=== PATIENT | female | born 1950 | race Caucasian/White ===

== ENCOUNTER 2016-11-25 14:15 | Inpatient (IN) | payer OTHER, MEDICARE ==
[2016-11-25] VITALS (9 sets, daily range): BP systolic 104–147; BP diastolic 45–81; PULSE 65–91; RESP 16–30; O2SAT 85–95
[~2016-11-25] VITALS: Ht 167.6 cm; Wt 110.5 kg
[~2016-11-25 14:15] MED LIST: ASPI-351 PO; ATEN25TA7 PO; CEPH500C PO; CITA20TA PO; DILT60TA PO; LISI10TA PO; MULT-64 PO; OMEP20TA86 PO; PHEN200T16 PO; VIC5 PO; ZOC20 PO
--- NOTE | 2016-11-25 14:19 | ED.REPORT ---
HPI-Dyspnea / Wheezing Date of Service Nov 25, 2016 ED Provider: Jevon Guillen DO A 66 year old female with a history of pneumonia, aortic aneurism, and hypertension is brought to the ED via EMS, accompanied by her , due to shortness of breath. The pt has been experiencing a cough recently, which has worsened significantly. It is now productive with green and yellow sputum. This is accompanied by wheezing, nausea, vomiting, rhinorrhea, and nasal congestion. The pt saw her PCP four days ago, at which point her lungs were clear. She was diagnosed with sinusitis and prescribed Augmentin. She last took a dose this morning. The pt denies chest pain, lower extremity edema, abdominal pain, and bloody sputum. as well as any history of asthma or breathing treatments. states that he was recently dx with bronchitis. Nursing Notes Stated Complaint: SOB Chief Complaint: Respiratory Distress Nursing Notes Reviewed: Yes Allergies: Coded Allergies: Shellfish (Verified Allergy, Severe, 12/13/10) iodine (Verified Allergy, Severe, 12/13/10) hydromorphone (Verified Allergy, Intermediate, rash, 11/25/16) Scheduled Aspirin-Expunged Drug, Do Not Renew! (Aspirin-Expunged Drug, Do Not Renew!) 325 Mg Tablet 325 MG PO DAILY Atenolol-Expunged Drug, Do Not Renew! (Atenolol-Expunged Drug, Do Not Renew!) 25 Mg Tablet 50 MG PO BID HOLD FOR HEARTRATE LESS THAN 60 Esomeprazole Magnesium (Nexium) 20 Mg Capsule.dr 20 MG PO BID Multivitamins-Expunged Drug, Do Not Renew! (Multivitamins-Expunged Drug, Do Not Renew!) 1 Each Tab.chew 1 EACH PO DAILY Scheduled PRN Hydrocod/APAP-Expunged, Do Not Renew! (Vicodin-Expunged Drug, Do Not Renew) 1 Tab Tab 1-2 TAB PO QID PRN PRN General Time Seen by MD: 14:18 Chief Complaint Shortness of breath Hx Obtained From: Patient, EMS Arrived By: Ambulance Sudden in Onset?: No Onset Occurred: More than a week ago... Symptom Duration: Since onset Recent Healthcare: No recent hospitalization, Recent doctor visit Similar Sx Previous: Yes Past Medical History Past Medical History pneumonia aortic aneurism hypertension irregular heartbeat diverticulitis arthritis back injury depression Past Surgical History unspecified Smoking History Unknown if Ever Smoker Social History Alcohol Use: "Social" Ambulatory Status Independent Review of Systems Ears / Nose / Throat: Reports: Nasal congestion Respiratory: Reports: Prod cough, green, Prod cough, yellow, Wheezing, Denies: Prod cough, bloody Cardiovascular: Denies: Chest pain, Edema Allergy / Immune: Reports: Rhinorrhea Complete sys rev & neg: except as marked. GI: Reports: Nausea, Denies: Abdominal pain Physical Exam Initial Vital Signs Vital Signs (First) Date Time Temp Pulse Resp B/P Pulse Ox O2 Delivery O2 Flow Rate FiO2 11/25/16 14:18 37.1 79 26 122/65 93 Nasal Cannula 2 Initial VS: Reviewed General/Constitutional: Awake, Alert Distress / Hydration: Positive: Distress moderate Neck: Atraumatic, Supple, Full range of motion Respiratory / Chest: Atraumatic, Breath sounds = bilat, No respiratory distress Wheezing / Retractions: Positive: Wheezing mild (diffuse, scattered) expiratory wheezing hypoxic Cardiovascular: Heart rate NL, Regular rhythm, Heart sounds NL ENT: Atraumatic, Airway patent, Mucous membranes moist Abdomen: Atraumatic, Soft, Non-tender Back: Atraumatic, Full range of motion Lower Extremity / Pelvis / MS: Atraumatic, Full range of motion, No edema Skin: Atraumatic, Color NL, No rash, Warm, Dry Neurologic: Oriented X3, Speech NL, No motor deficits, No sensory deficits Upper Extremity / MS: Atraumatic, Full range of motion Psychiatric: Affect NL, Mood NL Interpretation & Diagnostics Lab Results Interpretation Result Diagram: 11/25/16 1502 11/25/16 1502 Test 11/25/16 15:02 White Blood Count 9.3th/mm3 (3.8-10.1) Red Blood Count 5.08mil/mm3 (3.90-5.20) Hemoglobin 14.9g/dL (12.0-15.6) Hematocrit 44.6% (35.0-46.0) Mean Corpuscular Volume 87.8fL (81-100) Mean Corpuscular Hemoglobin 29.3pg (27.0-35.0) Mean Corpuscular Hemoglobin Concent 33.4% (32.0-37.0) Red Cell Distribution Width 13.4% (12.3-15.4) Platelet Count 199bil/L (150-400) Neutrophils (%) (Auto) 75.7% (40-74) Lymphocytes (%) (Auto) 12.7% (14-46) Monocytes (%) (Auto) 10.5% (4-12) Eosinophils (%) (Auto) 0.4% (0-5) Basophils (%) (Auto) 0.4% (0-3) Sodium Level 133mEq/L (134-144) Potassium Level 4.4mEq/L (3.5-5.2) Chloride Level 95mEq/L (97-108) Carbon Dioxide Level 23mmol/L (18-29) Blood Urea Nitrogen 21mg/dL (8-27) Creatinine 1.10mg/dL (0.57-1.00) Estimat Glomerular Filtration Rate 71mL/min (>59) Glucose Level 121mg/dL (60-99) Lactic Acid Level 1.4mmol/L (0.4-2.0) Calcium Level 9.3mg/dL (8.5-10.1) Total Bilirubin 0.3mg/dL (0.0-1.2) Aspartate Amino Transf (AST/SGOT) 29U/L (0-50) Alanine Aminotransferase (ALT/SGPT) 23U/L (0-32) Alkaline Phosphatase 87U/L (25-165) Total Protein 7.8g/dL (6.4-8.4) Albumin 4.0g/dL (3.4-5.0) X-Ray Chest Interpretation Chest Xray Interpretation: IMPRESSION: No acute pulmonary process. Dictated by: Natasha Talley M.D. on 11/25/2016 at 15:18 Approved by: Natasha Talley M.D. on 11/25/2016 at 15:18 Re-Eval/Medical Decision Med Decision/Clinical Course Hypoxia with URI symptoms. Care transferred to Dr. Martin Alonzo Source of Hx: Old records Re-Evaluation/Progress : Time of Eval: 15:32 Re-Evaluation/Progress Note: Pt informed of transfer of care. Pt rechecked. Pt states that the breathing treatments have not improved her breathing. states that he was recently dx with bronchitis. Pt states that she wants to be discharged. Counseled Regarding: Diagnosis, Lab results Discharge & Departure Shift Change Sign-Out Patient Care Transferred: Yes Discussed Complaint(s): Yes Laboratory Evaluation: Ordered, not yet done Imaging Studies: Ordered, not yet done Impression: Primary Impression: Bronchitis Disposition: Home Discharge Condition All VS Reviewed: Yes Condition: Stable Patient Instructions: Acute Bronchitis (ED) Referrals: OTHER,PHYSICIAN (PCP) [facility] Care Transferred to: Dr. Bosch Care Transferred at: 15:00 Divinaibe Attestation Portions of this note were transcribed by Austen Dawson I, Dr. Guillen personally performed the history, physical exam and medical decision-making; I reviewed and confirmed the accuracy of the information in the transcribed note. Signed by: Sirisha Keys, 11/25/16 and 15:08. Portions of this note were transcribed by Jadyn Crawford I, Dr. Bosch personally performed the history, physical exam and medical decision-making; I reviewed and confirmed the accuracy of the information in the transcribed note. Signed by: Sirisha Keys, 11/25/16 and 15:39. copies to: [facility] Jevon Guillen DO Nov 25, 2016 14:18 AUSTEN DAWSON Nov 25, 2016 14:34 JADYN CRAWFORD Nov 25, 2016 15:35
[2016-11-25] MEDS ORDERED: Albuterol-Ipratropium 3 mL Inhalation Solution NEB ONE (14:30)
[2016-11-25] MEDS ORDERED: Albuterol 2.5 mg/3 mL Inhalation Solution NEB ONE (14:30)
[2016-11-25] MEDS ORDERED: MethylprednisoLONE Sodium Succinate 62.5 mg/mL 2 mL Inj IVPUSH ONE (14:30)
[2016-11-25] MEDS ORDERED: ESOM20CA28 PO (14:55)
[2016-11-25 15:09] LABS: BASOPHILS % (AUTO) 0.4 % (0-3); EOSINOPHILS % (AUTO) 0.4 % (0-5); MONOCYTES % (AUTO) 10.5 % (4-12); Mean Corpuscular Hemoglobin 29.3 pg (27.0-35.0); Mean Corpuscular Volume 87.8 fL (81-100); NEUTROPHILS % (AUTO) 75.7 % (40-74); Platelet Count 199 bil/L (150-400)
--- NOTE | 2016-11-25 15:24 | DRSVH ---
PROCEDURE: X-RAY CHEST, TWO VIEWS ([id number]) INDICATIONS: dyspnea/hypoxia TECHNIQUE: 2 views of the chest were acquired. COMPARISON: [facility], CR, XR CHEST 2VW, 07/05/2015, 10:20. FINDINGS: Surgical changes and devices: Sternal wires. Lungs and pleura: No pleural effusions or pneumothorax. Lungs are clear. Mediastinum: Mediastinal contours are normal. Heart size is normal. Bones and chest wall: No suspicious bony abnormalities. Soft tissues appear unremarkable. IMPRESSION: No acute pulmonary process. Dictated by: Natasha Talley M.D. on 11/25/2016 at 15:18 Approved by: Natasha Talley M.D. on 11/25/2016 at 15:18
[2016-11-25] MEDS ORDERED: Magnesium Sulf 2 Gm/50mL Water 2 GM in IV Premix 1 EACH IV ONE (15:40)
[2016-11-25] MEDS ORDERED: 0.9% Sodium Chloride 500 ML ONE (16:01)
[2016-11-25] MEDS ORDERED: Ondansetron 2 mg/mL 2 mL Inj IVPUSH ONE (18:35)
--- NOTE | 2016-11-25 19:16 | PCM.HPMED ---
Subjective Date of Service Nov 25, 2016 Primary Provider: Admitting Physician: Matt Almaraz MD Primary Care Physician: Other,Physician Attending Physician: Matt Almaraz MD Chief Complaint: Cough, short of breath HISTORY was OBTAINED FROM PATIENT / MEDITECH NOTES History of present illness 58-year-old female, brought in by due to shortness of breath and worsening cough, green productive associated bloody phlegm, wheezing, vomiting, nasal congestion, chest pressure, lower morrell edema, abdominal pain. PCP 4 days ago ordered Augmentin to treat sinusitis which is ongoing. initially had sinusitis. He also has bronchitis and is being treated w/ augmentin. no home inhaler use. prescribed CPAP but does not use. In the ER, 85% on room air, respiratory rate 30, ongoing wheezes Zofran saline magnesium azithromycin methylprednisolone albuterol DuoNeb 4 Review of Systems - none of the following - increased wt with poor appetite / lightheaded / dizziness / acid reflux / n/v/diarrhea / bleeding/bruising / change in voiding / yeast infections / rash ambulates FAMILY HX asthma childhood SOCIAL HX Occasional EtOH, never smoker medications metoprolol losartan crestor asa PMHx Paroxysmal A. 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 Hypothyroidism Headache Pneumonia Diverticulitis/GERD/PUD UTI Arthritis/back injury Depression Allergies Coded Allergies: Shellfish (Verified Allergy, Severe, 12/13/10) iodine (Verified Allergy, Severe, 12/13/10) hydromorphone (Verified Allergy, Intermediate, rash, 11/25/16) phenol (Verified Allergy, Unknown, 11/25/16) PMH Social History Hx Alcohol Use: Yes (occassionally) Hx Substance Use: No Hx Tobacco Use: No Smoking Status: Unknown if Ever Smoker Exam Vital Signs Vital Sign - Last Date Time Temp Pulse Resp B/P Pulse Ox O2 Delivery O2 Flow Rate FiO2 11/25/16 18:17 78 30 109/81 85 Room Air 11/25/16 17:25 5 11/25/16 14:18 37.1 Lab and Diagnostics Labs Exam on admission 5L >> 3L NC NAD A and O x 3 mood affect WNL NC/AT no icterus no injected eyes EOMI PERRL /no pharyngeal lesions/ no oral lesions / hearing intact Supple neck diminshed significantly bilateral, equal chest rise / no accessory muscle use / speaks in full sentences / no rrw RRR S1 S2 / no mrg / 2+ radial pulses Soft nt nd + BS no hepatosplenomegaly trace morrell bilateral edema no cyanosis no ecchymosis of lower extremities No rash / no jaundice MARRERO Trop neg BNP elevated Left shift Influenza negative Blood culture pending lactic acid neg LFT negative Imaging chest x-ray INDICATIONS: dyspnea/hypoxia TECHNIQUE: 2 views of the chest were acquired. COMPARISON: [facility], CR, XR CHEST 2VW, 07/05/2015, 10:20. FINDINGS: Surgical changes and devices: Sternal wires. Lungs and pleura: No pleural effusions or pneumothorax. Lungs are clear. Mediastinum: Mediastinal contours are normal. Heart size is normal. Bones and chest wall: No suspicious bony abnormalities. Soft tissues appear unremarkable. IMPRESSION: No acute pulmonary process. echo 2010- There is borderline concentric left ventricular hypertrophy. Left ventricular systolic function is normal, with an ejection fraction of 60- 65%. The aortic valve is sclerotic, sclerotic, without stenosis. Patient has had an ascending aortic aneurysm repair, no abnormalities are seen. There is a trace tricuspid regurgitation; right ventricular systolic pressure is normal. There is no prior echocardiogram noted for this patient. Result Diagram: 11/25/16 1502 11/25/16 1502 Assessment & Plan Active issues and reason for admission infectious bronchitis/sinusitis, failed outpatient augmentin associated w/ reactive airway/hypoxia --solumderol/duoneb/wean O2/rocephine azithro --pending PCR viral --ocean spray Associated elevated blood glucose and creatinine --A1c pending s/p IVF --ssI elevaetd BNP / hypoxia --evaluat CHF as contributing factor- pending Echo Chronic issues known prior to admission, present on admission Paroxysmal A. 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
[2016-11-25] MEDS ORDERED: Glucose 40% Oral Gel 15 Gm Tube PO PRN (19:20)
[2016-11-25] MEDS ORDERED: Albuterol 2.5 mg/3 mL Inhalation Solution NEB PRN (19:20)
[2016-11-25] MEDS ORDERED: ROSU10TA24 PO (20:22)
[2016-11-25] MEDS ORDERED: METO-272 PO (20:22)
[2016-11-25] MEDS ORDERED: LOSA50TA37 PO (20:22)
--- NOTE | 2016-11-25 20:23 | NUR ---
Admit Note Pt. arrived on floor at 1999. Report received by Seheba Stevens RN. Pt. was on 5 liters of oxygen with a non rebreather mask. Pt's peripheral IV is intact and present. Pt. was oriented to room. [place] bed alarm in place. Will continue to monitor.
[2016-11-25] MEDS: Albuterol-Ipratropium 3 mL Inhalation Solution NEB SCH (20:30)
[2016-11-25 22:19] LABS: APPEARANCE,URINE CLEAR (CLEAR,HAZY); COLOR,URINE STRAW (YELLOW); OCCULT BLOOD,URINE TRACE (NEGATIVE); PH,URINE 5.5 (5.0-8.0); UROBILINOGEN,URINE NORMAL (NORMAL)
[2016-11-25] MEDS: Insulin LISPRO 300 Unit/3 mL Inj SUBQ SCH (22:34)
[2016-11-26] VITALS (10 sets, daily range): BP systolic 126–150; BP diastolic 61–78; PULSE 61–78; RESP 16–20; O2SAT 92–98
[2016-11-26] MEDS: MeTOProlol XL 50 mg ER24 Tablet PO SCH ×2 (00:20→21:25)
[2016-11-26] MEDS: MethylprednisoLONE Sodium Succinate 62.5 mg/mL 2 mL Inj IVPUSH SCH ×3 (00:25→17:24)
[2016-11-26] MEDS: Albuterol-Ipratropium 3 mL Inhalation Solution NEB SCH ×6 (00:32→22:23)
[2016-11-26] MEDS: Sodium Chloride NAS 45 mL Spray NASAL PRN (03:32)
--- NOTE | 2016-11-26 04:09 | NUR ---
Sinus Headache Headache ineffective with tylenol PO. paged. ordered a one time dose of ultram PO. Will continue to monitor.
[2016-11-26 05:33] LABS: Mean Corpuscular Hemoglobin 29.4 pg (27.0-35.0)
[2016-11-26 05:54] LABS: TROPONIN T 0.01 ug/L (0.0-0.011)
[2016-11-26] MEDS ORDERED: 0.9% Sodium Chloride 250 ML ONE (07:44)
[2016-11-26] MEDS: Insulin LISPRO 300 Unit/3 mL Inj SUBQ SCH ×4 (07:47→21:24)
[2016-11-26] MEDS: cefTRIAXone Inj 1,000 MG in Dextrose 5% Minibag Plus 50 ML IV SCH (07:51)
--- NOTE | 2016-11-26 12:29 | PCM.PNMED ---
Subjective Date of Service Nov 26, 2016 Subjective Patient was examined at bedside today. Patient denies any chest pain, nausea, vomiting, diarrhea. Patient reports shortness of breath and fatigue. Exam Vital Signs Vital Sign - Last Date Time Temp Pulse Resp B/P Pulse Ox O2 Delivery O2 Flow Rate FiO2 11/26/16 11:47 63 16 95 OxyMask 6.00 11/26/16 05:13 36.4 126/61 Intake and Output 11/25/16 11/25/16 11/26/16 Cumulative From/Thru 15:00 23:00 07:00 11/25/16 14:18 - 11/26/16 05:13 Intake Total 2400 ml 2400 ml Output Total 1250 ml 1250 ml Balance 1150 ml 1150 ml Intake Oral 2400 ml 2400 ml Output Urine Total 1250 ml 1250 ml # Voids 5 5 # Bowel Movements 0 0 Exam Physical Exam: GEN: Patient was awake, alert, responding appropriately to questions HEENT: PERRLA, EOMI, Neck soft supple, trachea midline, nomocephalic/atraumatic CV: +S1/S2, RRR, no murmurs auscultated Respiratory: Positive wheezing bilaterally no rales, rhonchi GI: +bowel sounds x4, soft, compressible, non TTP EXT: no c/c/e Neuro: CN II-XII grossly intact Psych: mood and affect were appropriate IVs and Medications Medications Reviewed: Medications were reviewed in detail Medications Current Medications Al Hydrox/Mg Hydrox/Simethicone 30 ml Q6 PRN PO; Start 11/25/16 at 19:10 Ondansetron HCl Dose range: 4 mg to 8 mg Q4H PRN IVPUSH; Start 11/25/16 at 19: 10 Acetaminophen 975 mg Q6H PRN PO Last administered on 11/26/16 07:49; Admin Dose 975 MG; Start 11/25/16 at 19:10 Methylprednisolone Sodium Succinate 125 mg Q8 IVPUSH Last administered on 07:50; Admin Dose 125 MG; Start 11/26/16 at 00:30 Albuterol/ Ipratropium 3 ml 3 ml Q4 NEB Last administered on 11/26/16 11:47; Admin Dose 3 ML; Start 11/25/16 at 20:30 Ceftriaxone Sodium/Dextrose/ Dextrose/Water 100 ml @ 200 mls/hr Q24 IV Last administered on 11/26/16 07:51; Admin Dose 200 MLS/HR; Start 11/26/16 at 08:30 Enoxaparin Sodium 40 mg Q24 SUBQ Last administered on 11/26/16 07:50; Admin Dose 40 MG; Start 11/26/16 at 08:30 Albuterol 2.5 mg Q2H PRN NEB; Start 11/25/16 at 19:20 Famotidine 20 mg Q12 PO Last administered on 11/25/16 22:19; Admin Dose 20 MG; Start 11/25/16 at 20:30; Stop 11/26/16 at 00:00; Status DC Insulin Human Lispro WMHS SUBQ Last administered on 11/25/16 22:34; Admin Dose 1 UNIT; Start 11/25/16 at 22:00 Losartan Potassium 50 mg DAILY PO Last administered on 11/26/16 07:49; Admin Dose 50 MG; Start 11/26/16 at 08:30 Metoprolol Succinate 50 mg HS PO Last administered on 11/26/16 00:20; Admin Dose 50 MG; Start 11/25/16 at 23:15 Rosuvastatin Calcium 10 mg HS PO Last administered on 11/26/16 00:20; Admin Dose 10 MG; Start 11/25/16 at 23:15 Sodium Chloride 2 spray Q4HWA PRN NASAL Last administered on 11/26/16 03:32; Admin Dose 2 SPRAY; Start 11/25/16 at 23:30 Famotidine 20 mg DAILY PO Last administered on 11/26/16 07:49; Admin Dose 20 MG ; Start 11/26/16 at 08:30 Lab and Diagnostics Result Diagram: 11/26/1619 11/26/16 0519 Microbiology Laboratory Tests Test 11/25/16 15:02 11/25/16 21:00 11/26/16 05:19 White Blood Count 9.3th/mm3 (3.8-10.1) 8.0th/mm3 (3.8-10.1) Red Blood Count 5.08mil/mm3 (3.90-5.20) 4.76mil/mm3 (3.90-5.20) Hemoglobin 14.9g/dL (12.0-15.6) 14.0g/dL (12.0-15.6) Hematocrit 44.6% (35.0-46.0) 41.4% (35.0-46.0) Mean Corpuscular Volume 87.8fL (81-100) 87.0fL (81-100) Mean Corpuscular Hemoglobin 29.3pg (27.0-35.0) 29.4pg (27.0-35.0) Mean Corpuscular Hemoglobin Concent 33.4% (32.0-37.0) 33.8% (32.0-37.0) Red Cell Distribution Width 13.4% (12.3-15.4) 13.0% (12.3-15.4) Platelet Count 199bil/L (150-400) 221bil/L (150-400) Neutrophils (%) (Auto) 75.7% (40-74) Lymphocytes (%) (Auto) 12.7% (14-46) Monocytes (%) (Auto) 10.5% (4-12) Eosinophils (%) (Auto) 0.4% (0-5) Basophils (%) (Auto) 0.4% (0-3) Sodium Level 133mEq/L (134-144) 139mEq/L (134-144) Potassium Level 4.4mEq/L (3.5-5.2) 5.0mEq/L (3.5-5.2) Chloride Level 95mEq/L (97-108) 97mEq/L (97-108) Carbon Dioxide Level 23mmol/L (18-29) 25mmol/L (18-29) Blood Urea Nitrogen 21mg/dL (8-27) 22mg/dL (8-27) Creatinine 1.10mg/dL (0.57-1.00) 0.71mg/dL (0.57-1.00) Estimat Glomerular Filtration Rate 71mL/min (>59) 117mL/min (>59) Glucose Level 121mg/dL (60-99) 164mg/dL (60-99) Lactic Acid Level 1.4mmol/L (0.4-2.0) Calcium Level 9.3mg/dL (8.5-10.1) 9.3mg/dL (8.5-10.1) Total Bilirubin 0.3mg/dL (0.0-1.2) 0.2mg/dL (0.0-1.2) Aspartate Amino Transf (AST/SGOT) 29U/L (0-50) 24U/L (0-50) Alanine Aminotransferase (ALT/SGPT) 23U/L (0-32) 21U/L (0-32) Alkaline Phosphatase 87U/L (25-165) 86U/L (25-165) Troponin T < 0.010ug/L (0.0-0.011) 0.010ug/L (0.0-0.011) Pro-B-Type Natriuretic Peptide 393.2pg/mL (0-301) 142.0pg/mL (0-301) Total Protein 7.8g/dL (6.4-8.4) 7.2g/dL (6.4-8.4) Albumin 4.0g/dL (3.4-5.0) 4.1g/dL (3.4-5.0) Procalcitonin 0.06ng/mL (See Comment) < 0.05ng/mL (See Comment) Urine Color Straw (YELLOW) Urine Appearance Clear (CLEAR,HAZY) Urine pH 5.5 (5.0-8.0) Urine Specific [place] 1.010 (1.003-1.035) Urine Protein Negativemg/dL (NEG,TRACE) Urine Glucose (UA) Negativemg/dL (NEGATIVE) Urine Ketones Negativemg/dL (NEGATIVE) Urine Occult Blood Trace (NEGATIVE) Urine Nitrite Negative (NEGATIVE) Urine Bilirubin Negative (NEGATIVE) Urine Urobilinogen Normalmg/dL (NORMAL) Urine Leukocyte Esterase Negative (NEGATIVE) Urine RBC 0-2/hpf (0-2) Urine WBC 0-5/hpf (0-5) Urine Epithelial Cells Few/hpf (NONE-MOD) Urine Crystals None seen (NONE SEEN) Urine Bacteria None/hpf (NONE-FEW) Urine Hyaline Casts Occasional/lpf (NONE) Urine Granular Casts None seen (NONE SEEN) Urine Waxy Casts None seen (NONE SEEN) Urine Red Blood Cell Casts None seen (NONE SEEN) Urine White Blood Cell Casts None seen (NONE SEEN) Urine Mucus Present (None Seen) Urine Trichomonas None seen (NONE SEEN) Urine Yeast None (NONE SEEN) Urine Culture Reflexed Not indicated Microbiology 11/25/16 Blood Culture, Received Pending 11/25/16 MRSA Screen, Received Pending Microbiology ADENOVIRUS RESPIRATORY PCR Final 11/26/16-1042 Not Detected CORONOVIRUS 229E Final 11/26/16-1042 Not Detected CORONOVIRUS HKU1 Final 11/26/16 Not Detected CORONOVIRUS NL63 Final 11/26/16 Not Detected CORONOVIRUS OC43 Final 11/26/16 Not Detected INFLUENZA A PCR Final 11/26/16 Not Detected INFLUENZA B PCR Final 11/26/16 Not Detected METAPNEUMOVIRUS PCR Final 11/26/16 Not Detected RHINOVIRUS OR ENTEROVIRUS PCR Final 11/26/16 Not Detected PARAINFLUENZA 1 PCR Final 11/26/16 Not Detected PARAINFLUENZA 2 PCR Final 11/26/16 Not Detected PARAINFLUENZA 3 PCR Final 11/26/16 Not Detected PARAINFLUENZA 4 PCR Final 11/26/16 Not Detected Assessment & Plan 66-year-old female presents to the emergency room for shortness of breath and failed outpatient therapy for bronchitis. Infectious bronchitis/sinusitis, failed outpatient augmentin associated w/ reactive airway/hypoxia -- Continue duoneb/wean O2 -- Decrease Solu-Medrol to 60 every 8. -- Continue azithromycin and rocephine -- Patient positive for RSV, patient placed on droplet cautions -- Continue ocean spray -- Blood cultures pending -- Influenza screen negative -- Sputum culture shows normal sean -- Motrin for pain Associated elevated blood glucose --A1c pending -- Continue insulin sliding scale Elevated creatinine-resolved -- Creatinine 1.10 yesterday today 0.71 -- Patient responded well to IV fluids -- We will continue to monitor Elevaetd BNP / hypoxia -- Repeat BNP within normal limits 142 -- We will follow up on echo Hypertension -- Blood pressure stable 126/61 -- Continue losartan 50 mg daily -- Continue metoprolol 50 mg daily at bedtime Hyperlipidemia -- Continue Crestor 10 mg daily at bedtime DVT prophylaxis: Lovenox 40 mg subcutaneous daily, SCDs, ambulation Chronic issues known prior to admission, present on admission Paroxysmal A. 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 We will continue with medical management/supportive care and follow-up with blood cultures. GI Prophylaxis: H2 ashely VTE Mechanical Devices: Intermittant Pneumatic CD Resuscitation Status: CPR: Attempt Resuscitation Tiffanie Barney DO Nov 26, 2016 12:29
--- NOTE | 2016-11-26 14:15 | DRSVH ---
[facility] [address] [place] [address] Echocardiogram Report Name: FABRICIO BECK Date : 11/26/2016 Height: 66 in Hospital Exam Location: [facility] Weight: 240 lb Gender: Female BSA: 2.2 m2 : 1950 Age: 66 yrs BP: 126/61 mmHg Reason For Study: ELEVATED BNP, HYPOXIA Ordering Physician: Performed By: Natalio Padron Interpretation Summary The left ventricular cavity is small. There is mild-moderate concentric left ventricular hypertrophy. The ejection fraction is estimated to be 75-80%. There are no focal wall motion abnormalities. The right ventricle is normal in size and function. The right ventricular systolic pressure is estimated at 34 mmHg assuming a right atrial pressure of 3 mm Hg. The IVC is of normal diameter and collapses greater than 50% with a sniff. This suggests a low right atrial pressure of 3 mm Hg. There is no significant valvular heart disease. No other echocardiographic abnormalities seen. Compared to the prior echo report on 12/13/2010, there is no significant change. Procedure: A two-dimensional transthoracic echocardiogram with color flow and Doppler was performed. The study quality was technically adequate. Comparison is made with the echocardiogram of 12/13/10. The patient was in normal sinus rhythm during the exam. Left Ventricle: The left ventricular cavity is small. There is mild- moderate concentric left ventricular hypertrophy. The ejection fraction is estimated to be 75-80%. There are no focal wall motion abnormalities. Right Ventricle: The right ventricle is normal in size and function. Atria: Both atria are normal in size. The interatrial septum is intact with no evidence for an atrial septal defect. Mitral Valve: There is mild to moderate mitral annular calcification. There is no mitral regurgitation noted. Aortic Valve: The aortic valve is trileaflet. The aortic valve is mildly calcified. The aortic valve opens well. There is mild aortic valve sclerosis. There is trace aortic regurgitation. Tricuspid Valve: The tricuspid valve is normal in structure and function. There is mild to moderate tricuspid regurgitation. The right ventricular systolic pressure is estimated at 34 mmHg assuming a right atrial pressure of 3 mm Hg. Pulmonic Valve: The pulmonic valve is not well visualized. Great Vessels: The aortic root is normal size. Patient has had an ascending aortic aneurysm repair. The dimensions of the ascending aorta are normal. The pulmonary artery is normal size. The IVC is of normal diameter and collapses greater than 50% with a sniff. This suggests a low right atrial pressure of 3 mm Hg. Pericardium/ Pleura There is no pericardial effusion. There is no pleural effusion. MMode/2D Measurements & Calculations LVIDd: 3.9 cm LA dimension: 3.7 cm RA long axis Ao root diam LVIDs: 1.5 cm FS: 60.6 % LA A2 area: 21.7 cm RA area Aortic Jxn EPSS: 0.23 cm LA A4 area: 19.6 cm IVSd: 1.3 cm LA length (vol): 5.6 cm : 16.4 cm asc Aorta LVPWd: 1.1 cm LA vol: 63.9 ml RA vol: 43.3 mlDiam: 3.5 cm RA LA vol index: 29.6 ml/m : 20.0 mm2 IVC diam: 1.7 cm LV arreaga. diameter/BSA LV sys. diameter/BSA (cm/m^2): 1.8 (cm/m^2): 0.71 Doppler Measurements & Calculations Ao V2 max MV E max lopez MV E/A: 1.2 TR max lopez : 185.7 cm/sec : 130.3 cm/sec Med Peak E' Lopez : 280.3 cm/sec Ao max PG MV A max lopez TR max P.4 mmHg : 13.8 mmHg : 109.2 cm/sec E/E' med: 22.5 PA V2 max: 143.0 cm/sec Ao mean PG Pulm A Revs Dur PA mean P.3 mmHg : 8.3 mmHg PA Accel Time: 0.08 sec MV A dur: 0.12 sec MV dec time Ao V2 mean PA V2 mean Pulm A Revs Dur - MV A : 0.12 sec : 139.4 cm/sec : 99.0 cm/sec Dur: -0.02 msec Ao V2 VTI: 39.2 cmPA pr(Accel) : 39.1 mmHg Reading Physician:02:14 PM
--- NOTE | 2016-11-26 16:13 | NUR ---
Cough Pt inquiring about how much longer she'll be in the hospital. Discussed w/ her oxygen sats and that we need to ween her off of o2 Pt states she is feeling a bit better, I told her that she looks tired Pt states she really hasn't slept since Sunday night, requests something for cough/sleep Spoke to Dr. Satya Willams ordered also reduced pt down to 5L via oxymask per verbal order. Keep pt above 92% Bed down and in locked position, call light w/in reach
[2016-11-26] MEDS: Ondansetron 2 mg/mL 2 mL Inj IVPUSH PRN (17:12)
[2016-11-27] VITALS (9 sets, daily range): BP systolic 151–168; BP diastolic 70–82; PULSE 68–95; RESP 16–20; O2SAT 90–96
[2016-11-27] MEDS: Sodium Chloride NAS 45 mL Spray NASAL PRN ×2 (00:01→20:23)
[2016-11-27] MEDS: MethylprednisoLONE Sodium Succinate 62.5 mg/mL 2 mL Inj IVPUSH SCH ×3 (01:11→16:53)
[2016-11-27] MEDS: Albuterol-Ipratropium 3 mL Inhalation Solution NEB SCH ×6 (01:39→20:53)
--- NOTE | 2016-11-27 05:11 | NUR ---
Cough / O2 needs Persistent cough with sputum, pt reports that neb treatments help. Sat>92% on 3L via oxymask. Able to ambulate safely to BR with O2. Hourly rounding ongoing.
[2016-11-27] MEDS: cefTRIAXone Inj 1,000 MG in Dextrose 5% Minibag Plus 50 ML IV SCH (08:56)
[2016-11-27] MEDS: Insulin LISPRO 300 Unit/3 mL Inj SUBQ SCH ×4 (09:23→20:25)
--- NOTE | 2016-11-27 16:36 | PCM.PNMED ---
Subjective Date of Service Nov 27, 2016 Subjective Patient was examined at bedside today. Patient denies any chest pain, shortness of breath, nausea, vomiting, diarrhea. Exam Vital Signs Vital Sign - Last Date Time Temp Pulse Resp B/P Pulse Ox O2 Delivery O2 Flow Rate FiO2 11/27/16 16:17 95 18 93 OxyMask 1.50 11/27/16 13:51 36.4 168/70 Intake and Output 11/26/16 11/26/16 11/27/16 Cumulative From/Thru 15:00 23:00 07:00 11/25/16 14:18 - 11/27/16 05:44 Intake Total 1246 ml 1250 ml 4896 ml Output Total 1400 ml 2550 ml 5200 ml Balance -154 ml -1300 ml -304 ml Intake Oral 1246 ml 1250 ml 4896 ml Output Urine Total 1400 ml 2350 ml 5000 ml Emesis 200 ml 200 ml # Voids 5 5 15 # Bowel Movements 0 0 Exam Physical Exam: GEN: Patient was awake, alert, responding appropriately to questions HEENT: PERRLA, EOMI, Neck soft supple, trachea midline, nomocephalic/atraumatic CV: +S1/S2, RRR, no murmurs auscultated Respiratory: Positive wheezes, no rales or rhonchi GI: +bowel sounds x4, soft, compressible, non TTP EXT: no c/c/e Neuro: CN II-XII grossly intact Psych: mood and affect were appropriate IVs and Medications Medications Reviewed: Medications were reviewed in detail Medications Current Medications Al Hydrox/Mg Hydrox/Simethicone 30 ml Q6 PRN PO; Start 11/25/16 at 19:10 Ondansetron HCl Dose range: 4 mg to 8 mg Q4H PRN IVPUSH Last administered on 17:12; Admin Dose 4 MG; Start 11/25/16 at 19:10 Acetaminophen 975 mg Q6H PRN PO Last administered on 11/27/16 05:31; Admin Dose 975 MG; Start 11/25/16 at 19:10 Methylprednisolone Sodium Succinate 125 mg Q8 IVPUSH Last administered on 07:50; Admin Dose 125 MG; Start 11/26/16 at 00:30; Stop 11/26/16 at 12:21; Status DC Albuterol/ Ipratropium 3 ml 3 ml Q4 NEB Last administered on 11/27/16 16:16; Admin Dose 3 ML; Start 11/25/16 at 20:30 Ceftriaxone Sodium/Dextrose/ Dextrose/Water 100 ml @ 200 mls/hr Q24 IV Last administered on 11/27/16 08:56; Admin Dose 200 MLS/HR; Start 11/26/16 at 08:30 Enoxaparin Sodium 40 mg Q24 SUBQ Last administered on 11/27/16 09:13; Admin Dose 40 MG; Start 11/26/16 at 08:30 Albuterol 2.5 mg Q2H PRN NEB; Start 11/25/16 at 19:20 Famotidine 20 mg Q12 PO Last administered on 11/25/16 22:19; Admin Dose 20 MG; Start 11/25/16 at 20:30; Stop 11/26/16 at 00:00; Status DC Insulin Human Lispro WMHS SUBQ Last administered on 11/27/16 09:23; Admin Dose 3 UNIT; Start 11/25/16 at 22:00 Losartan Potassium 50 mg DAILY PO Last administered on 11/27/16 09:12; Admin Dose 50 MG; Start 11/26/16 at 08:30 Metoprolol Succinate 50 mg HS PO Last administered on 11/26/16 21:25; Admin Dose 50 MG; Start 11/25/16 at 23:15 Rosuvastatin Calcium 10 mg HS PO Last administered on 11/26/16 21:25; Admin Dose 10 MG; Start 11/25/16 at 23:15 Sodium Chloride 2 spray Q4HWA PRN NASAL Last administered on 11/27/16 00:01; Admin Dose 2 SPRAY; Start 11/25/16 at 23:30 Famotidine 20 mg DAILY PO Last administered on 11/27/16 09:12; Admin Dose 20 MG ; Start 11/26/16 at 08:30 Ibuprofen 600 mg QID PRN PO Last administered on 11/27/16 09:59; Admin Dose 600 MG; Start 11/26/16 at 12:10 Methylprednisolone Sodium Succinate 60 mg Q8 IVPUSH Last administered on 08:56; Admin Dose 60 MG; Start 11/26/16 at 16:30 Benzonatate 100 mg TID PRN PO Last administered on 11/26/16t 21:25; Admin Dose 100 MG; Start 11/26/16 at 16:05 Lab and Diagnostics Result Diagram: 11/26/16 0519 11/26/16 0519 Microbiology Laboratory Tests Test 11/25/16 15:02 11/25/16 21:00 11/26/16 05:19 White Blood Count 9.3th/mm3 (3.8-10.1) 8.0th/mm3 (3.8-10.1) Red Blood Count 5.08mil/mm3 (3.90-5.20) 4.76mil/mm3 (3.90-5.20) Hemoglobin 14.9g/dL (12.0-15.6) 14.0g/dL (12.0-15.6) Hematocrit 44.6% (35.0-46.0) 41.4% (35.0-46.0) Mean Corpuscular Volume 87.8fL (81-100) 87.0fL (81-100) Mean Corpuscular Hemoglobin 29.3pg (27.0-35.0) 29.4pg (27.0-35.0) Mean Corpuscular Hemoglobin Concent 33.4% (32.0-37.0) 33.8% (32.0-37.0) Red Cell Distribution Width 13.4% (12.3-15.4) 13.0% (12.3-15.4) Platelet Count 199bil/L (150-400) 221bil/L (150-400) Neutrophils (%) (Auto) 75.7% (40-74) Lymphocytes (%) (Auto) 12.7% (14-46) Monocytes (%) (Auto) 10.5% (4-12) Eosinophils (%) (Auto) 0.4% (0-5) Basophils (%) (Auto) 0.4% (0-3) Sodium Level 133mEq/L (134-144) 139mEq/L (134-144) Potassium Level 4.4mEq/L (3.5-5.2) 5.0mEq/L (3.5-5.2) Chloride Level 95mEq/L (97-108) 97mEq/L (97-108) Carbon Dioxide Level 23mmol/L (18-29) 25mmol/L (18-29) Blood Urea Nitrogen 21mg/dL (8-27) 22mg/dL (8-27) Creatinine 1.10mg/dL (0.57-1.00) 0.71mg/dL (0.57-1.00) Estimat Glomerular Filtration Rate 71mL/min (>59) 117mL/min (>59) Glucose Level 121mg/dL (60-99) 164mg/dL (60-99) Lactic Acid Level 1.4mmol/L (0.4-2.0) Calcium Level 9.3mg/dL (8.5-10.1) 9.3mg/dL (8.5-10.1) Total Bilirubin 0.3mg/dL (0.0-1.2) 0.2mg/dL (0.0-1.2) Aspartate Amino Transf (AST/SGOT) 29U/L (0-50) 24U/L (0-50) Alanine Aminotransferase (ALT/SGPT) 23U/L (0-32) 21U/L (0-32) Alkaline Phosphatase 87U/L (25-165) 86U/L (25-165) Troponin T < 0.010ug/L (0.0-0.011) 0.010ug/L (0.0-0.011) Pro-B-Type Natriuretic Peptide 393.2pg/mL (0-301) 142.0pg/mL (0-301) Total Protein 7.8g/dL (6.4-8.4) 7.2g/dL (6.4-8.4) Albumin 4.0g/dL (3.4-5.0) 4.1g/dL (3.4-5.0) Procalcitonin 0.06ng/mL (See Comment) < 0.05ng/mL (See Comment) Urine Color Straw (YELLOW) Urine Appearance Clear (CLEAR,HAZY) Urine pH 5.5 (5.0-8.0) Urine Specific Keiser 1.010 (1.003-1.035) Urine Protein Negativemg/dL (NEG,TRACE) Urine Glucose (UA) Negativemg/dL (NEGATIVE) Urine Ketones Negativemg/dL (NEGATIVE) Urine Occult Blood Trace (NEGATIVE) Urine Nitrite Negative (NEGATIVE) Urine Bilirubin Negative (NEGATIVE) Urine Urobilinogen Normalmg/dL (NORMAL) Urine Leukocyte Esterase Negative (NEGATIVE) Urine RBC 0-2/hpf (0-2) Urine WBC 0-5/hpf (0-5) Urine Epithelial Cells Few/hpf (NONE-MOD) Urine Crystals None seen (NONE SEEN) Urine Bacteria None/hpf (NONE-FEW) Urine Hyaline Casts Occasional/lpf (NONE) Urine Granular Casts None seen (NONE SEEN) Urine Waxy Casts None seen (NONE SEEN) Urine Red Blood Cell Casts None seen (NONE SEEN) Urine White Blood Cell Casts None seen (NONE SEEN) Urine Mucus Present (None Seen) Urine Trichomonas None seen (NONE SEEN) Urine Yeast None (NONE SEEN) Urine Culture Reflexed Not indicated Microbiology 11/25/16 Blood Culture, Received Pending 11/25/16 MRSA Screen, Received Pending Microbiology ADENOVIRUS RESPIRATORY PCR Final 11/26/16 Not Detected CORONOVIRUS 229E Final 11/26/16 Not Detected CORONOVIRUS HKU1 Final 11/26/16 Not Detected CORONOVIRUS NL63 Final 11/26/16 Not Detected CORONOVIRUS OC43 Final 11/26/16 Not Detected INFLUENZA A PCR Final 11/26/16 Not Detected INFLUENZA B PCR Final 11/26/16 Not Detected METAPNEUMOVIRUS PCR Final 11/26/16 Not Detected RHINOVIRUS OR ENTEROVIRUS PCR Final 11/26/16 Not Detected PARAINFLUENZA 1 PCR Final 11/26/16 Not Detected PARAINFLUENZA 2 PCR Final 11/26/16 Not Detected PARAINFLUENZA 3 PCR Final 11/26/16 Not Detected PARAINFLUENZA 4 PCR Final 11/26/16 Not Detected Cardiac Echo Impressions Echocardiogram Report Name: FABRICIO BECK [place] Date : 11/26/2016 Height: 66 in Hospital Exam Location: [facility] Weight: 240 lb Gender: Female BSA: 2.2 m2 : 1950 Age: 66 yrs BP: 126/61 mmHg Reason For Study: ELEVATED BNP, HYPOXIA Ordering Physician: Performed By: Natalio Padron Interpretation Summary The left ventricular cavity is small. There is mild-moderate concentric left ventricular hypertrophy. The ejection fraction is estimated to be 75-80%. There are no focal wall motion abnormalities. The right ventricle is normal in size and function. The right ventricular systolic pressure is estimated at 34 mmHg assuming a right atrial pressure of 3 mm Hg. The IVC is of normal diameter and collapses greater than 50% with a sniff. This suggests a low right atrial pressure of 3 mm Hg. There is no significant valvular heart disease. No other echocardiographic abnormalities seen. Compared to the prior echo report on 12/13/2010, there is no significant change. Procedure: A two-dimensional transthoracic echocardiogram with color flow and Doppler was performed. The study quality was technically adequate. Comparison is made with the echocardiogram of 12/13/10. The patient was in normal sinus rhythm during the exam. Left Ventricle: The left ventricular cavity is small. There is mild- moderate concentric left ventricular hypertrophy. The ejection fraction is estimated to be 75-80%. There are no focal wall motion abnormalities. Right Ventricle: The right ventricle is normal in size and function. Atria: Both atria are normal in size. The interatrial septum is intact with no evidence for an atrial septal defect. Mitral Valve: There is mild to moderate mitral annular calcification. There is no mitral regurgitation noted. Aortic Valve: The aortic valve is trileaflet. The aortic valve is mildly calcified. The aortic valve opens well. There is mild aortic valve sclerosis. There is trace aortic regurgitation. Tricuspid Valve: The tricuspid valve is normal in structure and function. There is mild to moderate tricuspid regurgitation. The right ventricular systolic pressure is estimated at 34 mmHg assuming a right atrial pressure of 3 mm Hg. Pulmonic Valve: The pulmonic valve is not well visualized. Great Vessels: The aortic root is normal size. Patient has had an ascending aortic aneurysm repair. The dimensions of the ascending aorta are normal. The pulmonary artery is normal size. The IVC is of normal diameter and collapses greater than 50% with a sniff. This suggests a low right atrial pressure of 3 mm Hg. Pericardium/ Pleura There is no pericardial effusion. There is no pleural effusion. MMode/2D Measurements & Calculations LVIDd: 3.9 cm LA dimension: 3.7 cm RA long axis Ao root diam LVIDs: 1.5 cm FS: 60.6 % LA A2 area: 21.7 cm RA area Aortic Jxn EPSS: 0.23 cm LA A4 area: 19.6 cm IVSd: 1.3 cm LA length (vol): 5.6 cm : 16.4 cm asc Aorta LVPWd: 1.1 cm LA vol: 63.9 ml RA vol: 43.3 mlDiam: 3.5 cm RA LA vol index: 29.6 ml/m : 20.0 mm2 IVC diam: 1.7 cm LV arreaga. diameter/BSA LV sys. diameter/BSA (cm/m^2): 1.8 (cm/m^2): 0.71 Doppler Measurements & Calculations Ao V2 max MV E max lopez MV E/A: 1.2 TR max lopez : 185.7 cm/sec : 130.3 cm/sec Med Peak E' Lopez : 280.3 cm/sec Ao max PG MV A max lopez TR max P.4 mmHg : 13.8 mmHg : 109.2 cm/sec E/E' med: 22.5 PA V2 max: 143.0 cm/sec Ao mean PG Pulm A Revs Dur PA mean P.3 mmHg : 8.3 mmHg PA Accel Time: 0.08 sec MV A dur: 0.12 sec MV dec time Ao V2 mean PA V2 mean Pulm A Revs Dur - MV A : 0.12 sec : 139.4 cm/sec : 99.0 cm/sec Dur: -0.02 msec Ao V2 VTI: 39.2 cmPA pr(Accel) : 39.1 mmHg Reading Physician:02:14 PM Assessment & Plan 66-year-old female presents to the emergency room for shortness of breath and failed outpatient therapy for bronchitis. Infectious bronchitis/sinusitis, failed outpatient augmentin associated w/ reactive airway/hypoxia -- Continue duoneb -- wean O2 -- Decrease Solu-Medrol to 60 PO QD -- Discontinue azithromycin and rocephine -- Patient positive for RSV, patient placed on droplet cautions -- Continue ocean spray -- Blood cultures pending negative -- Influenza screen negative -- Sputum culture shows normal sean -- Motrin for pain Associated elevated blood glucose --A1c pending -- Continue insulin sliding scale Elevated creatinine-resolved -- Creatinine 1.10 yesterday today 0.71 -- Patient responded well to IV fluids -- We will continue to monitor Elevaetd BNP / hypoxia -- Repeat BNP within normal limits 142 -- Echo shows no changes from previous echo Hypertension -- Blood pressure 168/70 -- Continue losartan 50 mg daily -- Continue metoprolol 50 mg daily at bedtime Hyperlipidemia -- Continue Crestor 10 mg daily at bedtime DVT prophylaxis: Lovenox 40 mg subcutaneous daily, SCDs, ambulation Chronic issues known prior to admission, present on admission Paroxysmal A. fib AAA repair in 1999/hypertension no dyslipidemia - statin per executive talent acquisition consultant Hypothyroidism Headache Pneumonia Diverticulitis/GERD/PUD UTI Arthritis/back injury Code full Disposition: Patient seems to have improved significantly and is recovering well. At this time the patient has not been able to tolerate the weaning of oxygen. Patient is currently down to 1 L of oxygen and satting well. We will discontinue patient's oxygen in order to send patient home. Patient will most likely be discharged home tomorrow pending oxygen weaned. GI Prophylaxis: H2 ashely VTE Mechanical Devices: Intermittant Pneumatic CD Resuscitation Status: CPR: Attempt Resuscitation Tiffanie Barney DO Nov 27, 2016 16:36
[2016-11-27] MEDS: Ondansetron 2 mg/mL 2 mL Inj IVPUSH PRN (16:53)
--- NOTE | 2016-11-27 19:39 | NUR ---
Cough/nausea/emesis Patient with nausea today and some emesis after a neb treatment given. Pt remains on 02-1-2 liters at this time. Patient desating to 85-88 percent on room air. Pt with wheezes noted and dry cough .
[2016-11-27] MEDS: MeTOProlol XL 50 mg ER24 Tablet PO SCH (20:23)
[2016-11-27] MEDS: diphenhydrAMINE 25 mg Capsule PO PRN (23:09)
[2016-11-28] VITALS (8 sets, daily range): BP systolic 138–145; BP diastolic 75–82; PULSE 71–142; RESP 18–20; O2SAT 88–97
[2016-11-28] MEDS: Sodium Chloride NAS 45 mL Spray NASAL PRN ×2 (00:08→06:36)
[2016-11-28] MEDS: Ondansetron 2 mg/mL 2 mL Inj IVPUSH PRN ×3 (00:08→13:19)
[2016-11-28] MEDS: Albuterol-Ipratropium 3 mL Inhalation Solution NEB SCH ×2 (00:30→06:14)
--- NOTE | 2016-11-28 05:11 | NUR ---
O2 needs Ambulated 3 full loops in hallway with 2L O2, sats in low 90s. Able to wean off of O2 while resting in bed late in night, sat 90-92%. Neb treatments continue to give pt headache and increase cough, otherwise she reports feeling better and having more energy. Hourly rounding ongoing.
[2016-11-28] MEDS: Insulin LISPRO 300 Unit/3 mL Inj SUBQ SCH ×4 (08:00→22:00)
[2016-11-28] MEDS: predniSONE 20 mg Tablet PO SCH (08:03)
[2016-11-28] MEDS: Albuterol 2.5 mg/3 mL Inhalation Solution NEB SCH ×2 (09:37→13:08)
--- NOTE | 2016-11-28 11:41 | NUR ---
Social Work Screen Note: EMR reviewed. Patient is a 66 year old female admitted on 11/25/16 for hypoxemia and bronchitis. [facility] [place]. [phone]. 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 Patient payer as BCBS and Medicare. Patient has no terminal superintendent disability nor VA benefits. Patient PCP as MD Pamela Bhat. Patient states pharmacy of choice as [facility]. Patient has no HHC, SNF, or DME history. Patient states having no AD and declined information. Patient states to provide transport home upon discharge. Patient denied any discharge needs at this time. SW to follow. PLAN: Home with via POV, pending clinical course. No anticipated discharge needs identified at this time. Solange BLUE
[2016-11-28] MEDS: diphenhydrAMINE 25 mg Capsule PO PRN ×2 (12:10→23:42)
[2016-11-28] MEDS ORDERED: Levalbuterol 1.25 mg/0.5mL Inhalation Solution NEB SCH (13:35)
[2016-11-28] MEDS ORDERED: MeTOProlol 1 mg/mL 5 mL Inj IVPUSH ONE (14:05)
--- NOTE | 2016-11-28 15:29 | PCM.PNMED ---
Subjective Date of Service Nov 28, 2016 Subjective Patient was seen and examined today. Patient was in no acute distress. Patient denied chest pain, abdominal pain. However the patient reported nausea and vomiting with the use of dual nebs and albuterol. Patient states that she does not feel short of breath and does not understand why her oxygen saturations are desatting into the 80s even when at rest occasionally.Staff also mention that the patient's oxygen saturations have been desatting while walking as well. Patient states that she feels improved. Exam Vital Signs Vital Sign - Last Date Time Temp Pulse Resp B/P Pulse Ox O2 Delivery O2 Flow Rate FiO2 11/28/16 13:08 77 20 90 Room Air 11/28/16 06:14 1.00 11/28/16 04:39 36.7 145/79 Intake and Output 11/27/16 11/27/16 11/28/16 Cumulative From/Thru 15:00 23:00 07:00 11/25/16 14:18 - 11/28/16 05:15 Intake Total 2231 ml 1250 ml 8377 ml Output Total 1400 ml 2250 ml 8850 ml Balance 831 ml -1000 ml -473 ml Intake Oral 2231 ml 1250 ml 8377 ml Output Urine Total 1400 ml 2250 ml 8650 ml Emesis 200 ml # Voids 5 20 # Bowel Movements 1 0 1 Exam Physical Exam: GEN: Patient was awake, alert, responding appropriately to questions HEENT: PERRLA, EOMI, Neck soft supple, trachea midline, nomocephalic/atraumatic CV: +S1/S2, RRR, no murmurs auscultated Respiratory: Mild wheezing significantly improved from yesterday, no rales or rhonchi GI: +bowel sounds x4, soft, compressible, non TTP EXT: no c/c/e Neuro: CN II-XII grossly intact Psych: mood and affect were appropriate IVs and Medications Medications Reviewed: Medications were reviewed in detail Medications Current Medications Methylprednisolone Sodium Succinate 60 mg Q8 IVPUSH Last administered on 16:53; Admin Dose 60 MG; Start 11/26/16 at 16:30; Stop 11/27/16 at 17:40; Status DC Benzonatate 100 mg TID PRN PO Last administered on 11/27/16 20:23; Admin Dose 100 MG; Start 11/26/16 at 16:05 Prednisone 60 mg DAILY PO Last administered on 11/28/16 08:03; Admin Dose 60 MG ; Start 11/28/16 at 08:30 Diphenhydramine HCl 25-50 MG Q6H PRN PO Last administered on 11/28/16 12:10; Admin Dose 50 MG; Start 11/27/16 at 22:20 Albuterol 2.5 mg Q4H NEB Last administered on 11/28/16 13:08; Admin Dose 2.5 MG ; Start 11/28/16 at 10:00; Stop 11/28/16 at 13:31; Status DC Levalbuterol 1.25 mg Q4H NEB; Start 11/28/16 at 13:35 Lab and Diagnostics Result Diagram: 11/26/16 0519 11/26/16 0519 Microbiology Laboratory Tests Test 11/25/16 15:02 11/25/16 21:00 11/26/16 05:19 White Blood Count 9.3th/mm3 (3.8-10.1) 8.0th/mm3 (3.8-10.1) Red Blood Count 5.08mil/mm3 (3.90-5.20) 4.76mil/mm3 (3.90-5.20) Hemoglobin 14.9g/dL (12.0-15.6) 14.0g/dL (12.0-15.6) Hematocrit 44.6% (35.0-46.0) 41.4% (35.0-46.0) Mean Corpuscular Volume 87.8fL (81-100) 87.0fL (81-100) Mean Corpuscular Hemoglobin 29.3pg (27.0-35.0) 29.4pg (27.0-35.0) Mean Corpuscular Hemoglobin Concent 33.4% (32.0-37.0) 33.8% (32.0-37.0) Red Cell Distribution Width 13.4% (12.3-15.4) 13.0% (12.3-15.4) Platelet Count 199bil/L (150-400) 221bil/L (150-400) Neutrophils (%) (Auto) 75.7% (40-74) Lymphocytes (%) (Auto) 12.7% (14-46) Monocytes (%) (Auto) 10.5% (4-12) Eosinophils (%) (Auto) 0.4% (0-5) Basophils (%) (Auto) 0.4% (0-3) Sodium Level 133mEq/L (134-144) 139mEq/L (134-144) Potassium Level 4.4mEq/L (3.5-5.2) 5.0mEq/L (3.5-5.2) Chloride Level 95mEq/L (97-108) 97mEq/L (97-108) Carbon Dioxide Level 23mmol/L (18-29) 25mmol/L (18-29) Blood Urea Nitrogen 21mg/dL (8-27) 22mg/dL (8-27) Creatinine 1.10mg/dL (0.57-1.00) 0.71mg/dL (0.57-1.00) Estimat Glomerular Filtration Rate 71mL/min (>59) 117mL/min (>59) Glucose Level 121mg/dL (60-99) 164mg/dL (60-99) Lactic Acid Level 1.4mmol/L (0.4-2.0) Calcium Level 9.3mg/dL (8.5-10.1) 9.3mg/dL (8.5-10.1) Total Bilirubin 0.3mg/dL (0.0-1.2) 0.2mg/dL (0.0-1.2) Aspartate Amino Transf (AST/SGOT) 29U/L (0-50) 24U/L (0-50) Alanine Aminotransferase (ALT/SGPT) 23U/L (0-32) 21U/L (0-32) Alkaline Phosphatase 87U/L (25-165) 86U/L (25-165) Troponin T < 0.010ug/L (0.0-0.011) 0.010ug/L (0.0-0.011) Pro-B-Type Natriuretic Peptide 393.2pg/mL (0-301) 142.0pg/mL (0-301) Total Protein 7.8g/dL (6.4-8.4) 7.2g/dL (6.4-8.4) Albumin 4.0g/dL (3.4-5.0) 4.1g/dL (3.4-5.0) Procalcitonin 0.06ng/mL (See Comment) < 0.05ng/mL (See Comment) Urine Color Straw (YELLOW) Urine Appearance Clear (CLEAR,HAZY) Urine pH 5.5 (5.0-8.0) Urine Specific [place] 1.010 (1.003-1.035) Urine Protein Negativemg/dL (NEG,TRACE) Urine Glucose (UA) Negativemg/dL (NEGATIVE) Urine Ketones Negativemg/dL (NEGATIVE) Urine Occult Blood Trace (NEGATIVE) Urine Nitrite Negative (NEGATIVE) Urine Bilirubin Negative (NEGATIVE) Urine Urobilinogen Normalmg/dL (NORMAL) Urine Leukocyte Esterase Negative (NEGATIVE) Urine RBC 0-2/hpf (0-2) Urine WBC 0-5/hpf (0-5) Urine Epithelial Cells Few/hpf (NONE-MOD) Urine Crystals None seen (NONE SEEN) Urine Bacteria None/hpf (NONE-FEW) Urine Hyaline Casts Occasional/lpf (NONE) Urine Granular Casts None seen (NONE SEEN) Urine Waxy Casts None seen (NONE SEEN) Urine Red Blood Cell Casts None seen (NONE SEEN) Urine White Blood Cell Casts None seen (NONE SEEN) Urine Mucus Present (None Seen) Urine Trichomonas None seen (NONE SEEN) Urine Yeast None (NONE SEEN) Urine Culture Reflexed Not indicated Microbiology 11/25/16 Blood Culture, Received Pending 11/25/16 MRSA Screen, Received Pending Microbiology ADENOVIRUS RESPIRATORY PCR Final 11/26/16 Not Detected CORONOVIRUS 229E Final 11/26/16 Not Detected CORONOVIRUS HKU1 Final 11/26/16 Not Detected CORONOVIRUS NL63 Final 11/26/16 Not Detected CORONOVIRUS OC43 Final 11/26/16 Not Detected INFLUENZA A PCR Final 11/26/16 Not Detected INFLUENZA B PCR Final 11/26/16 Not Detected METAPNEUMOVIRUS PCR Final 11/26/16 Not Detected RHINOVIRUS OR ENTEROVIRUS PCR Final 11/26/16 Not Detected PARAINFLUENZA 1 PCR Final 11/26/16 Not Detected PARAINFLUENZA 2 PCR Final 11/26/16 Not Detected PARAINFLUENZA 3 PCR Final 11/26/16 Not Detected PARAINFLUENZA 4 PCR Final 11/26/16 Not Detected Cardiac Echo Impressions Echocardiogram Report Name: FABRICIO BECK Date : 11/26/2016 Height: 66 in Hospital Exam Location: [facility] Weight: 240 lb Gender: Female BSA: 2.2 m2 : 1950 Age: 66 yrs BP: 126/61 mmHg Reason For Study: ELEVATED BNP, HYPOXIA Ordering Physician: Performed By: Natalio Padron Interpretation Summary The left ventricular cavity is small. There is mild-moderate concentric left ventricular hypertrophy. The ejection fraction is estimated to be 75-80%. There are no focal wall motion abnormalities. The right ventricle is normal in size and function. The right ventricular systolic pressure is estimated at 34 mmHg assuming a right atrial pressure of 3 mm Hg. The IVC is of normal diameter and collapses greater than 50% with a sniff. This suggests a low right atrial pressure of 3 mm Hg. There is no significant valvular heart disease. No other echocardiographic abnormalities seen. Compared to the prior echo report on 12/13/2010, there is no significant change. Procedure: A two-dimensional transthoracic echocardiogram with color flow and Doppler was performed. The study quality was technically adequate. Comparison is made with the echocardiogram of 12/13/10. The patient was in normal sinus rhythm during the exam. Left Ventricle: The left ventricular cavity is small. There is mild- moderate concentric left ventricular hypertrophy. The ejection fraction is estimated to be 75-80%. There are no focal wall motion abnormalities. Right Ventricle: The right ventricle is normal in size and function. Atria: Both atria are normal in size. The interatrial septum is intact with no evidence for an atrial septal defect. Mitral Valve: There is mild to moderate mitral annular calcification. There is no mitral regurgitation noted. Aortic Valve: The aortic valve is trileaflet. The aortic valve is mildly calcified. The aortic valve opens well. There is mild aortic valve sclerosis. There is trace aortic regurgitation. Tricuspid Valve: The tricuspid valve is normal in structure and function. There is mild to moderate tricuspid regurgitation. The right ventricular systolic pressure is estimated at 34 mmHg assuming a right atrial pressure of 3 mm Hg. Pulmonic Valve: The pulmonic valve is not well visualized. Great Vessels: The aortic root is normal size. Patient has had an ascending aortic aneurysm repair. The dimensions of the ascending aorta are normal. The pulmonary artery is normal size. The IVC is of normal diameter and collapses greater than 50% with a sniff. This suggests a low right atrial pressure of 3 mm Hg. Pericardium/ Pleura There is no pericardial effusion. There is no pleural effusion. MMode/2D Measurements & Calculations LVIDd: 3.9 cm LA dimension: 3.7 cm RA long axis Ao root diam LVIDs: 1.5 cm FS: 60.6 % LA A2 area: 21.7 cm RA area Aortic Jxn EPSS: 0.23 cm LA A4 area: 19.6 cm IVSd: 1.3 cm LA length (vol): 5.6 cm : 16.4 cm asc Aorta LVPWd: 1.1 cm LA vol: 63.9 ml RA vol: 43.3 mlDiam: 3.5 cm RA LA vol index: 29.6 ml/m : 20.0 mm2 IVC diam: 1.7 cm LV arreaga. diameter/BSA LV sys. diameter/BSA (cm/m^2): 1.8 (cm/m^2): 0.71 Doppler Measurements & Calculations Ao V2 max MV E max lopez MV E/A: 1.2 TR max lopez : 185.7 cm/sec : 130.3 cm/sec Med Peak E' Lopez : 280.3 cm/sec Ao max PG MV A max lopez TR max P.4 mmHg : 13.8 mmHg : 109.2 cm/sec E/E' med: 22.5 PA V2 max: 143.0 cm/sec Ao mean PG Pulm A Revs Dur PA mean P.3 mmHg : 8.3 mmHg PA Accel Time: 0.08 sec MV A dur: 0.12 sec MV dec time Ao V2 mean PA V2 mean Pulm A Revs Dur - MV A : 0.12 sec : 139.4 cm/sec : 99.0 cm/sec Dur: -0.02 msec Ao V2 VTI: 39.2 cmPA pr(Accel) : 39.1 mmHg Reading Physician:02:14 PM Assessment & Plan 66-year-old female presents to the emergency room for shortness of breath and failed outpatient therapy for bronchitis. Infectious bronchitis/sinusitis, failed outpatient augmentin associated w/ reactive airway/hypoxia -- Discontinue DuoNeb as patient seems to be having adverse reactions -- wean O2 -- Decrease prednisone to 60 PO QD continue to wean. -- Discontinue azithromycin and rocephine -- Patient positive for RSV, patient placed on droplet cautions -- Continue ocean spray -- Blood cultures pending negative -- Influenza screen negative -- Sputum culture shows normal sean -- Motrin for pain Tachycardia post-albuterol use -- Discontinue nebulizers -- 1 dose IV Lopressor 5 mg patient responded well -- Bedside EKG shows sinus tachycardia Associated elevated blood glucose --A1c 5.9 -- Continue insulin sliding scale Elevated creatinine-resolved -- Creatinine 1.10 yesterday today 0.71 -- Patient responded well to IV fluids -- We will continue to monitor Elevaetd BNP / hypoxia -- Repeat BNP within normal limits 142 -- Echo shows no changes from previous echo Hypertension -- Blood pressure 168/70 -- Continue losartan 50 mg daily -- Continue metoprolol 50 mg daily at bedtime Hyperlipidemia -- Continue Crestor 10 mg daily at bedtime DVT prophylaxis: Lovenox 40 mg subcutaneous daily, SCDs, ambulation Chronic issues known prior to admission, present on admission Paroxysmal A. 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 The patient is being weaned down and seems to be doing well on 1 L of oxygen and able to maintain her saturations. The patient did have a bout of sinus tachycardia shortly after an albuterol nebulized treatment with her heart rate increasing into the 130s and blood pressure 180's/133. The patient has a history of paroxysmal A. fib and an EKG was done showing sinus tachycardia. The patient responded well after receiving 5 mg of Lopressor IV push 1 time dose with her blood pressure decreasing to 138/75 but her heart rate remains in the 106-115. Patient is unable to be discharged home today as her oxygen saturations are still dropping into the high 80s while on room air. We will continue to monitor the patient for any further cardiac events. Once the patient's heart rate is stable and her oxygen needs are addressed she is stable to be discharged home. GI Prophylaxis: H2 ashely VTE Mechanical Devices: Intermittant Pneumatic CD Resuscitation Status: CPR: Attempt Resuscitation Tiffanie Barney DO Nov 28, 2016 15:29
--- NOTE | 2016-11-28 19:18 | NUR ---
CHEST PAIN/HR Patient complained of sternal chest pain and HR was in 130's for about 45 mins without getting better. STAT EKG ordered, notified MD. Assessed patient with MD, received order for 5mg of metoprolol IV x1, placed patient on tele and administered. Patient's HR came down to 110's-120's. Patient started to feel slightly better. Sinus tach on EKG and telemetry. Chest pain resolved. Patient states she still feels palpitations with heart rate. MD aware.
[2016-11-28] MEDS: MeTOProlol XL 50 mg ER24 Tablet PO SCH (20:39)
--- NOTE | 2016-11-28 20:59 | NUR ---
A-fib Per telemetry monitoring, pt is in a-fib rate 130-140s, 160s with ambulation. Pt symptomatic with SOB, fatigue, elevated B/P, denies chest pain. Pt has history with a-fib, notified.
[2016-11-28] MEDS ORDERED: Diltiazem 5 mg/mL 5 mL Inj IVPUSH ONE (21:45)
[2016-11-29] VITALS (10 sets, daily range): BP systolic 120–158; BP diastolic 78–143; PULSE 68–129; RESP 16–28; O2SAT 94–97
[2016-11-29] MEDS: Ondansetron 2 mg/mL 2 mL Inj IVPUSH PRN (02:03)
[2016-11-29] MEDS ORDERED: Albuterol-Ipratropium 3 mL Inhalation Solution NEB SCH (04:28)
[2016-11-29] MEDS ORDERED: Levalbuterol 1.25 mg/0.5mL Inhalation Solution NEB PRN (04:55)
[2016-11-29] MEDS: Albuterol-Ipratropium 120 Spray 4 Gm Inhaler INHALATION SCH ×4 (05:36→21:35)
--- NOTE | 2016-11-29 06:00 | NUR ---
A-fib / Respiratory Pt continues to be in a-fib, rate 110-130s, symptomatic to 150-160s with ambulation. Diltiazem medications given per orders with improvement in rate control. During night pt had severe cough which led to emesis; increased HR, SOB, pain in chest radiating to back, heavy wheezes. STAT EKG showed unchanged from prior. Respiratory assessed, made recommendation of inhaler to replace intolerable neb treatments, pt reports improvement post inhaler. Subjective improvement by am, pt able to sleep for short times. Hourly rounding ongoing.
[2016-11-29] MEDS: Insulin LISPRO 300 Unit/3 mL Inj SUBQ SCH ×4 (08:00→21:38)
[2016-11-29] MEDS: predniSONE 20 mg Tablet PO SCH (08:32)
[2016-11-29 09:08] LABS: Mean Corpuscular Hemoglobin 29.6 pg (27.0-35.0); Mean Corpuscular Volume 88.4 fL (81-100); Platelet Count 325 bil/L (150-400)
[2016-11-29 09:33] LABS: BASOPHILS % (AUTO) 0 % (0-3); EOSINOPHILS % (AUTO) 0 % (0-5); MONOCYTES % (AUTO) 9 % (4-12); NEUTROPHILS % (AUTO) 76 % (40-74)
[2016-11-29 09:36] LABS: Magnesium 2.1 mg/dL (1.6-2.6)
[2016-11-29] MEDS ORDERED: MeTOProlol XL 25 mg ER24 Tablet PO ONE (12:10)
[2016-11-29] MEDS ORDERED: MeTOProlol 1 mg/mL 5 mL Inj IVPUSH ONE (12:10)
--- NOTE | 2016-11-29 14:25 | DRSVH ---
PROCEDURE: X-RAY CHEST, TWO VIEWS ([id number]) INDICATIONS: Cough, Fever, Hypoxia TECHNIQUE: 2 views of the chest were acquired. COMPARISON: [facility], CR, XR CHEST 2VW, 11/25/2016, 14:26. [facility], CR , XR CHEST 2VW, 07/05/2015, 10:20. FINDINGS: Surgical changes and devices: Sternotomy wires, presumed prior CABG. Lungs and pleura: No pleural effusions or pneumothorax. Lungs are clear. Mediastinum: Mediastinal contours are normal. Heart size is normal. Bones and chest wall: No suspicious bony abnormalities. Soft tissues appear unremarkable. IMPRESSION: Source of current symptoms is not seen, no pneumonia found. Prior CABG. Dictated by: Prince Clark M.D. on 11/29/2016 at 14:23 Approved by: Prince Clark M.D. on 11/29/2016 at 14:24
[2016-11-29] MEDS ORDERED: Diltiazem 5 mg/mL 5 mL Inj IVPUSH ONE (15:20)
--- NOTE | 2016-11-29 15:32 | NUR ---
HR P: Tele-A.Fib, HR in 140's, patient complaining of stabbing chest pain at sternum, resolved within a couple minutes and position change. Patient stated same feeling as last night. I: Notified MD about HR and updated on patient status. Received orders for IV metoprolol and new dose of PO metoprolol. E: Administered medications and HR declined to low 130's. Patient stated feeling slightly better. MD aware.
--- NOTE | 2016-11-29 15:54 | NUR ---
T Addendum: 11/29/16 at 1635 by DEAN ASENCIO RN Transfer to [facility] Report given to LEANN Bonner. Transferred up to [facility] in hospital bed with all belongings. aware.
[2016-11-29] MEDS: Diltiazem Inj 125 MG in 0.9% Sodium Chloride 100 ML, Pharmacy To Mix 1 EA IV SCH (17:10)
--- NOTE | 2016-11-29 18:28 | NUR ---
Transfer She transferred about 1612 from [facility] to [facility] 2023 due to A-Fib 120s-130s, symptomatic. Report received from Vlad NORIEGA in [facility]. She was settled into the room and was placed on droplet precautions. 1L of O2 (98%). A diltiazem drip was started at 5mg/hour. Her telemetry afterward was A-fib 110s. It has been increased to 7mg/hour. States she is still feeling symptomatic, but better. Care continues.
--- NOTE | 2016-11-29 19:17 | PCM.PNMED ---
Subjective Date of Service Nov 29, 2016 Subjective The patient is very anxious today. Upon entering the room she stated "why is not anyone listening to me?". And then she stated "why has not anyone called my Doctor?" Patient is concerned that she is still in atrial fibrillation with a rapid ventricular response and stated "why hasn't anyone given me Cardizem to convert me?" Patient states that the anxiety that she is experiencing is exacerbating her condition and she is having some chest discomfort. She felt much better, and was quite relieved, after I talked to her cardiology group( [facility]) and spoke with Dr. Abrams who was covering for Dr. Sona Alexander Exam Vital Signs Vital Sign - Last Date Time Temp Pulse Resp B/P Pulse Ox O2 Delivery O2 Flow Rate FiO2 11/29/16 16:42 Supplement Oxygen 11/29/16 16:30 158/143 11/29/16 16:20 129 28 96 1.00 11/29/16 15:27 36.8 Intake and Output 11/28/16 11/28/16 11/29/16 Cumulative From/Thru 15:00 23:00 07:00 11/25/16 14:18 - 11/29/16 05:17 Intake Total 1160 ml 250 ml 9787 ml Output Total 550 ml 350 ml 9750 ml Balance 610 ml -100 ml 37 ml Intake Oral 1160 ml 250 ml 9787 ml Output Urine Total 550 ml 350 ml 9550 ml Emesis 200 ml # Voids 1 21 # Bowel Movements 1 1 3 Exam General: Patient is very anxious. She is also diaphoretic. She has an oxygen mask on and has a moistened washcloth on her forehead. HEENT: Head is atraumatic normocephalic. Eyes: Pupils are equally round and reactive to light and accommodation. Extraocular muscles are intact. Sclera are white anicteric. Subconjunctival mucosa is pink. Ears and nose are unremarkable. Oropharynx: There is no mucosal lesions, there is no thrush, there is no pharyngitis. Neck: Is supple, there are no nodes, or masses or tenderness. Chest: Is clear to auscultation and percussion. There are no rales, rhonchi, wheezes or rubs. Heart: Rate is tachycardic, rhythm is irregular. There is no appreciable murmur , rub or gallop. Abdomen: Good bowel sounds are present. Abdomen is obese, soft, nontender, no organomegaly, or masses were appreciated. Extremities: Are symmetrical and well perfused. There is no edema, there is no cellulitis, no rash. Neurologic: There are no focal neurological deficits. Cranial nerves II through XII are intact. There are no sensory or motor deficits. Psychiatric: Patients mood is calm and shows no sign of agitation. Genital: Deferred Rectal: Deferred Lab and Diagnostics Result Diagram: 11/29/16 0900 11/29/16 0900 Microbiology Laboratory Tests Test 11/25/16 15:02 11/25/16 21:00 11/26/16 05:19 White Blood Count 9.3th/mm3 (3.8-10.1) 8.0th/mm3 (3.8-10.1) Red Blood Count 5.08mil/mm3 (3.90-5.20) 4.76mil/mm3 (3.90-5.20) Hemoglobin 14.9g/dL (12.0-15.6) 14.0g/dL (12.0-15.6) Hematocrit 44.6% (35.0-46.0) 41.4% (35.0-46.0) Mean Corpuscular Volume 87.8fL (81-100) 87.0fL (81-100) Mean Corpuscular Hemoglobin 29.3pg (27.0-35.0) 29.4pg (27.0-35.0) Mean Corpuscular Hemoglobin Concent 33.4% (32.0-37.0) 33.8% (32.0-37.0) Red Cell Distribution Width 13.4% (12.3-15.4) 13.0% (12.3-15.4) Platelet Count 199bil/L (150-400) 221bil/L (150-400) Neutrophils (%) (Auto) 75.7% (40-74) Lymphocytes (%) (Auto) 12.7% (14-46) Monocytes (%) (Auto) 10.5% (4-12) Eosinophils (%) (Auto) 0.4% (0-5) Basophils (%) (Auto) 0.4% (0-3) Sodium Level 133mEq/L (134-144) 139mEq/L (134-144) Potassium Level 4.4mEq/L (3.5-5.2) 5.0mEq/L (3.5-5.2) Chloride Level 95mEq/L (97-108) 97mEq/L (97-108) Carbon Dioxide Level 23mmol/L (18-29) 25mmol/L (18-29) Blood Urea Nitrogen 21mg/dL (8-27) 22mg/dL (8-27) Creatinine 1.10mg/dL (0.57-1.00) 0.71mg/dL (0.57-1.00) Estimat Glomerular Filtration Rate 71mL/min (>59) 117mL/min (>59) Glucose Level 121mg/dL (60-99) 164mg/dL (60-99) Lactic Acid Level 1.4mmol/L (0.4-2.0) Calcium Level 9.3mg/dL (8.5-10.1) 9.3mg/dL (8.5-10.1) Total Bilirubin 0.3mg/dL (0.0-1.2) 0.2mg/dL (0.0-1.2) Aspartate Amino Transf (AST/SGOT) 29U/L (0-50) 24U/L (0-50) Alanine Aminotransferase (ALT/SGPT) 23U/L (0-32) 21U/L (0-32) Alkaline Phosphatase 87U/L (25-165) 86U/L (25-165) Troponin T < 0.010ug/L (0.0-0.011) 0.010ug/L (0.0-0.011) Pro-B-Type Natriuretic Peptide 393.2pg/mL (0-301) 142.0pg/mL (0-301) Total Protein 7.8g/dL (6.4-8.4) 7.2g/dL (6.4-8.4) Albumin 4.0g/dL (3.4-5.0) 4.1g/dL (3.4-5.0) Procalcitonin 0.06ng/mL (See Comment) < 0.05ng/mL (See Comment) Urine Color Straw (YELLOW) Urine Appearance Clear (CLEAR,HAZY) Urine pH 5.5 (5.0-8.0) Urine Specific [place] 1.010 (1.003-1.035) Urine Protein Negativemg/dL (NEG,TRACE) Urine Glucose (UA) Negativemg/dL (NEGATIVE) Urine Ketones Negativemg/dL (NEGATIVE) Urine Occult Blood Trace (NEGATIVE) Urine Nitrite Negative (NEGATIVE) Urine Bilirubin Negative (NEGATIVE) Urine Urobilinogen Normalmg/dL (NORMAL) Urine Leukocyte Esterase Negative (NEGATIVE) Urine RBC 0-2/hpf (0-2) Urine WBC 0-5/hpf (0-5) Urine Epithelial Cells Few/hpf (NONE-MOD) Urine Crystals None seen (NONE SEEN) Urine Bacteria None/hpf (NONE-FEW) Urine Hyaline Casts Occasional/lpf (NONE) Urine Granular Casts None seen (NONE SEEN) Urine Waxy Casts None seen (NONE SEEN) Urine Red Blood Cell Casts None seen (NONE SEEN) Urine White Blood Cell Casts None seen (NONE SEEN) Urine Mucus Present (None Seen) Urine Trichomonas None seen (NONE SEEN) Urine Yeast None (NONE SEEN) Urine Culture Reflexed Not indicated Microbiology Name: FABRICIO BECK Age/Sex: 66/F Attend Dr: Sonu Almaraz MD Acct: [id number] Unit: [id number] Status: ADM IN Location: [facility] [place] 1006-1 Re11/25/16 Disch: Specimen: [id number] Collected: 11/25/16 Status: COMP Req#: [id number] Received: 11/26/16 Source: NOSE Sp Desc : Subm Dr: Matt Almaraz MD Ordered: MRSA Comments: Collected by Nurse/Unit? Y/N Y Procedure Result Verified Site Microbiology SCOT CULT NASAL MRSA SCREEN Final 11/27/16 Screen NEGATIVE for Methicillin Resistant Staph Aureus Microbiology ADENOVIRUS RESPIRATORY PCR Final 11/26/16 Not Detected CORONOVIRUS 229E Final 11/26/16 Not Detected CORONOVIRUS HKU1 Final 11/26/16 Not Detected CORONOVIRUS NL63 Final 11/26/16 Not Detected CORONOVIRUS OC43 Final 11/26/16 Not Detected INFLUENZA A PCR Final 11/26/16 Not Detected INFLUENZA B PCR Final 11/26/16 Not Detected METAPNEUMOVIRUS PCR Final 11/26/16 Not Detected RHINOVIRUS OR ENTEROVIRUS PCR Final 11/26/16-1042 Not Detected PARAINFLUENZA 1 PCR Final 11/26/16-1042 Not Detected PARAINFLUENZA 2 PCR Final 11/26/16-1042 Not Detected PARAINFLUENZA 3 PCR Final 11/26/16-1042 Not Detected PARAINFLUENZA 4 PCR Final 11/26/16-1042 Not Detected RESP SYNCYTIAL VIRUS PCR Final 11/26/16- 1042 Organism 1 RESPIRATORY SYNCYTIAL VIRUS RESPIRATORY SYNCYTIAL PCR DETECTED TIME CALLED: 1024 DATE CALLED: 11/26/16 FLOOR/DOCTOR: ANA LAURA/VALDO Lu CALLED BY: VS Name: FABRICIO BECK Age/Sex: 66/F Attend Dr: Sonu Almaraz MD Acct: [id number] Unit: [id number] Status: ADM IN Location: [facility] [place] 1006-1 Re11/25/16 Disch: Specimen: [id number] Collected: 11/25/16 Status: RES Req#: [id number] Received: 11/25/16 Source: BLOOD Sp Desc : ELAINE Pozo Dr: Jevon Guillen DO Ordered: NURY Comments: Collected by Nurse/Unit? Y/N N Procedure Result Verified Site Microbiology SCOT CULTURE BLOOD Preliminary 11/27/16-1543 No growth at 2 days; culture examined daily no report between 2-5 days if negative. X-Rays, CTs and MRIs PROCEDURE: X-RAY CHEST, TWO VIEWS ([id number]) INDICATIONS: Cough, Fever, Hypoxia TECHNIQUE: 2 views of the chest were acquired. COMPARISON: [facility], CR, XR CHEST 2VW, 11/25/2016, 14:26. [facility], CR, XR CHEST 2VW, 07/05/2015, 10:20. FINDINGS: Surgical changes and devices: Sternotomy wires, presumed prior CABG. Lungs and pleura: No pleural effusions or pneumothorax. Lungs are clear. Mediastinum: Mediastinal contours are normal. Heart size is normal. Bones and chest wall: No suspicious bony abnormalities. Soft tissues appear unremarkable. IMPRESSION: Source of current symptoms is not seen, no pneumonia found. Prior CABG. Dictated by: Prince Clark M.D. on 11/29/2016 at 14:23 Approved by: Prince Clark M.D. on 11/29/2016 at 14:24 Cardiac Echo Impressions Echocardiogram Report Name: FABRICIO BECK Carmelina Date : 11/26/2016 Height: 66 in Hospital Exam Location: [facility] Weight: 240 lb Gender: Female BSA: 2.2 m2 : 1950 Age: 66 yrs BP: 126/61 mmHg Reason For Study: ELEVATED BNP, HYPOXIA Ordering Physician: Performed By: Natalio Padron Interpretation Summary The left ventricular cavity is small. There is mild-moderate concentric left ventricular hypertrophy. The ejection fraction is estimated to be 75-80%. There are no focal wall motion abnormalities. The right ventricle is normal in size and function. The right ventricular systolic pressure is estimated at 34 mmHg assuming a right atrial pressure of 3 mm Hg. The IVC is of normal diameter and collapses greater than 50% with a sniff. This suggests a low right atrial pressure of 3 mm Hg. There is no significant valvular heart disease. No other echocardiographic abnormalities seen. Compared to the prior echo report on 12/13/2010, there is no significant change. Procedure: A two-dimensional transthoracic echocardiogram with color flow and Doppler was performed. The study quality was technically adequate. Comparison is made with the echocardiogram of 12/13/10. The patient was in normal sinus rhythm during the exam. Left Ventricle: The left ventricular cavity is small. There is mild- moderate concentric left ventricular hypertrophy. The ejection fraction is estimated to be 75-80%. There are no focal wall motion abnormalities. Right Ventricle: The right ventricle is normal in size and function. Atria: Both atria are normal in size. The interatrial septum is intact with no evidence for an atrial septal defect. Mitral Valve: There is mild to moderate mitral annular calcification. There is no mitral regurgitation noted. Aortic Valve: The aortic valve is trileaflet. The aortic valve is mildly calcified. The aortic valve opens well. There is mild aortic valve sclerosis. There is trace aortic regurgitation. Tricuspid Valve: The tricuspid valve is normal in structure and function. There is mild to moderate tricuspid regurgitation. The right ventricular systolic pressure is estimated at 34 mmHg assuming a right atrial pressure of 3 mm Hg. Pulmonic Valve: The pulmonic valve is not well visualized. Great Vessels: The aortic root is normal size. Patient has had an ascending aortic aneurysm repair. The dimensions of the ascending aorta are normal. The pulmonary artery is normal size. The IVC is of normal diameter and collapses greater than 50% with a sniff. This suggests a low right atrial pressure of 3 mm Hg. Pericardium/ Pleura There is no pericardial effusion. There is no pleural effusion. MMode/2D Measurements & Calculations LVIDd: 3.9 cm LA dimension: 3.7 cm RA long axis Ao root diam LVIDs: 1.5 cm FS: 60.6 % LA A2 area: 21.7 cm RA area Aortic Jxn EPSS: 0.23 cm LA A4 area: 19.6 cm IVSd: 1.3 cm LA length (vol): 5.6 cm : 16.4 cm asc Aorta LVPWd: 1.1 cm LA vol: 63.9 ml RA vol: 43.3 mlDiam: 3.5 cm RA LA vol index: 29.6 ml/m : 20.0 mm2 IVC diam: 1.7 cm LV arreaga. diameter/BSA LV sys. diameter/BSA (cm/m^2): 1.8 (cm/m^2): 0.71 Doppler Measurements & Calculations Ao V2 max MV E max lopez MV E/A: 1.2 TR max lopez : 185.7 cm/sec : 130.3 cm/sec Med Peak E' Lopez : 280.3 cm/sec Ao max PG MV A max lopez TR max P.4 mmHg : 13.8 mmHg : 109.2 cm/sec E/E' med: 22.5 PA V2 max: 143.0 cm/sec Ao mean PG Pulm A Revs Dur PA mean P.3 mmHg : 8.3 mmHg PA Accel Time: 0.08 sec MV A dur: 0.12 sec MV dec time Ao V2 mean PA V2 mean Pulm A Revs Dur - MV A : 0.12 sec : 139.4 cm/sec : 99.0 cm/sec Dur: -0.02 msec Ao V2 VTI: 39.2 cmPA pr(Accel) : 39.1 mmHg Reading Physician:02:14 PM Assessment & Plan 66-year-old female presents to the emergency room for shortness of breath and failed outpatient therapy for bronchitis. Infectious bronchitis/sinusitis, failed outpatient augmentin associated w/ reactive airway/hypoxia -- Discontinue DuoNeb as patient seems to be having adverse reactions -- wean O2 -- Continue to taper prednisone. -- Azithromycin and Rocephin have been discontinued -- Patient positive for RSV, patient placed on droplet cautions -- Continue ocean spray -- Blood cultures negative to date -- Influenza screen negative -- Sputum culture shows normal sean -- Chest x-ray shows no evidence of pneumonia at this time -- Motrin for pain Atrial fibrillation with rapid ventricular response -- Nebulizers discontinued -- Patient is still in atrial fibrillation with rapid ventricular response despite 5 mg of IV metoprolol yesterday, 5 mg of diltiazem IV last night and 30 mg of diltiazem IV early this morning. -- Bedside EKG shows sinus tachycardia -- Telemetry monitoring shows atrial fibrillation with rapid ventricular response. -- I spoke with Dr. Abrams at [facility] in [place], who is covering for the patient's semi conductor assembler Dr. Sona Alexander, and he recommends starting the patient on a Cardizem drip at 5 mg an hour after a 10 mg bolus dose. -- Dr. Abrams also recommend that the patient be started on Eliquis was 5 mg by mouth twice a day. We will discontinue Lovenox Associated elevated blood glucose --A1c 5.9 -- Continue insulin sliding scale Elevated creatinine-resolved -- Creatinine 1.10 yesterday today 0.71 -- Patient responded well to IV fluids -- We will continue to monitor Elevaetd BNP / hypoxia -- Repeat BNP within normal limits 142 -- Echo shows no changes from previous echo Hypertension -- Blood pressure 168/70 -- Continue losartan 50 mg daily -- Continue metoprolol 50 mg daily at bedtime Hyperlipidemia -- Continue Crestor 10 mg daily at bedtime DVT prophylaxis: Lovenox 40 mg subcutaneous daily, SCDs, ambulation Chronic issues known prior to admission, present on admission Paroxysmal A. fib Aortic arch repair in 1999/hypertension no dyslipidemia - statin per semi conductor assembler Hypothyroidism Headache Pneumonia Diverticulitis/GERD/PUD UTI Arthritis/back injury Code full Disposition: Will depend on patient's response to IV Cardizem . Pain Evaluation: Adequate Pain Control GI Prophylaxis: H2 ashely VTE Prophylaxis: Sub-Q Enoxaparin, Other (Eliquis started today) VTE Mechanical Devices: Intermittant Pneumatic CD Resuscitation Status: CPR: Attempt Resuscitation Jose Carroll MD Nov 29, 2016 19:17
[2016-11-29] MEDS: MeTOProlol XL 50 mg ER24 Tablet PO SCH (21:34)
[2016-11-29] MEDS: Codeine-guaiFENesin 10 mL Syrup PO PRN (21:48)
[2016-11-30] VITALS (12 sets, daily range): BP systolic 101–149; BP diastolic 62–93; PULSE 81–121; RESP 18–24; O2SAT 93–97
[2016-11-30 03:54] LABS: BASOPHILS % (AUTO) 0.2 % (0-3); EOSINOPHILS % (AUTO) 0.3 % (0-5); MONOCYTES % (AUTO) 9.9 % (4-12); Mean Corpuscular Hemoglobin 29.4 pg (27.0-35.0); Mean Corpuscular Volume 88.1 fL (81-100); NEUTROPHILS % (AUTO) 74.1 % (40-74); Platelet Count 388 bil/L (150-400)
[2016-11-30 04:26] LABS: Magnesium 2.2 mg/dL (1.6-2.6)
--- NOTE | 2016-11-30 06:15 | NUR ---
Tele Pt remains afiv 70s-100s. Titrated dilt gtt per protocol to maintain BP and rate. VSS throughout night. Care ongoing
[2016-11-30] MEDS: Diltiazem Inj 125 MG in 0.9% Sodium Chloride 100 ML, Pharmacy To Mix 1 EA IV SCH ×2 (06:28→19:40)
[2016-11-30] MEDS: Insulin LISPRO 300 Unit/3 mL Inj SUBQ SCH ×4 (08:00→21:38)
[2016-11-30] MEDS: MeTOProlol XL 50 mg ER24 Tablet PO SCH ×2 (08:12→20:59)
[2016-11-30] MEDS ORDERED: predniSONE 20 mg Tablet PO SCH (08:30)
[2016-11-30] MEDS: Albuterol-Ipratropium 120 Spray 4 Gm Inhaler INHALATION SCH ×2 (11:13→11:14)
[2016-11-30] MEDS: Ipratropium 0.02% 0.5 mg/2.5 mL Inhalation Solution NEB SCH ×2 (14:34→20:49)
[2016-11-30] MEDS ORDERED: Furosemide 10 mg/mL 4 mL Inj IVPUSH ONE (14:55)
--- NOTE | 2016-11-30 16:19 | NUR ---
SOB/Pain: P: c/o SOB and 5/10 muscular CP from coughing I: SpO2: mid 90's on 1L NC, lung sounds decreased coarse and wheezes throughout. Tessalon pearles 100mg PO. RT called to administer NEB tx. Tylenol 975mg PO for pain and coached pt on splinting when coughing. E: pt states neb tx helped and breathing has gotten a little easier. pain now 2/10 and tolerable per pt
--- NOTE | 2016-11-30 16:48 | NUR ---
Social Work: Attempted Assessment D: Pt discussed in am rounds. Pt transferred to [facility]; currently on a dilt drip. CONVERTIBLE POWER SHOVEL OPERATOR attempted to meet with pt at bedside to complete initial assessment. Pt currently with MD team and unavailable for CONVERTIBLE POWER SHOVEL OPERATOR visit. EMR reviewed. Pt remains I during admission, no social work needs have been identified at this time. A: Pt who lives in [place] with her spouse. P: CONVERTIBLE POWER SHOVEL OPERATOR to continue to attempt to meet with pt at bedside to complete assessment and finalize discharge plan. MIRZA Bhatia
[2016-11-30] MEDS: Codeine-guaiFENesin 10 mL Syrup PO PRN (22:14)
--- NOTE | 2016-11-30 22:27 | PCM.PNMED ---
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 Admitted for treatment of bronchitis, atrial fibrillation with RVR. Hospital day 6 Overnight: nursing reported Patient is concerned that she is still in atrial fibrillation with a rapid ventricular response and stated "why hasn't anyone given me Cardizem to convert me?" Today: Patient stated that he heart rate is under better control but still become tachycardic when she moves from her bed and after she gets breathing treatments, she stated that when this happens she feels dizzy and nauseous. Patient stated that she is experiencing "hot flashes." Patient denies dysuria, constipation, diarrhea, change in vision, syncope. ROS negative except for mentioned above. Exam Vital Signs Vital Sign - Last Date Time Temp Pulse Resp B/P Pulse Ox O2 Delivery O2 Flow Rate FiO2 11/30/16 04:38 36.5 81 23 149/93 96 Nasal Cannula 1.00 Intake and Output 11/29/16 11/29/16 11/30/16 Cumulative From/Thru 15:00 23:00 07:00 11/25/16 14:18 - 11/30/16 06:57 Intake Total 200 ml 546 ml 14901 ml Output Total 500 ml 42743 ml Balance 200 ml 46 ml 283 ml Intake Oral 200 ml 436 ml 59104 ml IV Total 110 ml 110 ml Output Urine Total 500 ml 31353 ml Emesis 200 ml # Voids 1 22 # Bowel Movements 1 4 Exam General: Patient is very anxious. She has an NC 1 L on HEENT: Head is atraumatic normocephalic. Eyes: Pupils are equally round and reactive to light and accommodation. Extraocular muscles are intact. Sclera are white anicteric. Subconjunctival mucosa is pink. Ears and nose are unremarkable. Oropharynx: There is no mucosal lesions, there is no thrush, there is no pharyngitis. Neck: Is supple, there are no nodes, or masses or tenderness. Chest: Is clear to auscultation and percussion. There are no rales, rhonchi, wheezes or rubs. Heart: Rate is tachycardic, rhythm is irregular. There is no appreciable murmur , rub or gallop. Abdomen: Good bowel sounds are present. Abdomen is obese, soft, nontender, no organomegaly, or masses were appreciated. Extremities: Are symmetrical and well perfused. There is no edema, there is no cellulitis, no rash. Neurologic: There are no focal neurological deficits. Cranial nerves II through XII are intact. There are no sensory or motor deficits. Psychiatric: Patients mood is calm and shows no sign of agitation IVs and Medications Medications Tylenol Humalog med correction Lorsartan 50 mg Crestor 10 mg Pepcid 20 Ibuprofen 600 mg TEssalon 10 mg Guidafenisen/codine 5 ml Albuterol/ipatropium Lab and Diagnostics Result Diagram: 11/30/16 0320 11/30/16 0320 X-Rays, CTs and MRIs PROCEDURE: X-RAY CHEST, TWO VIEWS ([id number]) . IMPRESSION: Source of current symptoms is not seen, no pneumonia found. Prior CABG. Dictated by: Prince Clark M.D. on 11/29/2016 at 14:23 Approved by: Prince Clark M.D. on 11/29/2016 at 14:24 Cardiac Echo Impressions Echocardiogram Report Interpretation Summary The left ventricular cavity is small. There is mild-moderate concentric left ventricular hypertrophy. The ejection fraction is estimated to be 75-80%. There are no focal wall motion abnormalities. The right ventricle is normal in size and function. The right ventricular systolic pressure is estimated at 34 mmHg assuming a right atrial pressure of 3 mm Hg. The IVC is of normal diameter and collapses greater than 50% with a sniff. This suggests a low right atrial pressure of 3 mm Hg. There is no significant valvular heart disease. No other echocardiographic abnormalities seen. Compared to the prior echo report on 12/13/2010, there is no significant change. 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 Admitted for treatment of bronchitis, atrial fibrillation with RVR. Hospital day 6 1.Infectious bronchitis/sinusitis, failed outpatient augmentin associated w/ reactive airway/hypoxia, acute, present on admission -- Discontinue DuoNeb as patient seems to be having adverse reactions -- wean O2 currently 1 L O2 nc -- Continue to taper prednisone. -- Azithromycin and Rocephin have been discontinued -- Patient positive for RSV, patient placed on droplet cautions -- Continue ocean spray -- Blood cultures negative to date -- Influenza screen negative -- Sputum culture shows normal sean -- Chest x-ray shows no evidence of pneumonia at this time -- Motrin for pain 2. Atrial fibrillation with rapid ventricular response -- Nebulizers discontinued -- Patient is still in atrial fibrillation with rapid ventricular response despite 5 mg of IV metoprolol yesterday, 5 mg of diltiazem IV last night and 30 mg of diltiazem IV early this morning. -- Bedside EKG shows sinus tachycardia -- Telemetry monitoring shows atrial fibrillation with rapid ventricular response. --Continue Diltiazem drip, continue to monitor HR and rhythm -- Continue Eliquis was 5 mg by mouth twice a day. --Discontinued Lovenox sub Q 3.Associated elevated blood glucose --A1c 5.9 -- Continue insulin sliding scale 4.Elevated creatinine-resolved -- Creatinine 1.10 yesterday today 0.74 -- Patient responded well to IV fluids -- We will continue to monitor 5.Acute exacerbation of diastolic HF, acute on chronic. present on admission -- Repeat BNP within normal limits 142 -- Last Echocardiogram showed E-E' 24 with normal EF, sign of diastolic HF --Diltiazem drip slowed down and 40 mg Lasix given, to help improve diastolic HF and edema -- Continue to monitor 6.Hypertension, chronic, improving -- Blood pressure 123/81 -- Continue losartan 50 mg daily -- Continue metoprolol 50 mg daily at bedtime 7.Hyperlipidemia -- Continue Crestor 10 mg daily at bedtime DVT prophylaxis: Lovenox 40 mg subcutaneous daily, SCDs, ambulation Chronic issues known prior to admission, present on admission Paroxysmal A. 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 GI Prophylaxis: H2 ashely VTE Prophylaxis: Sub-Q Enoxaparin, Other (Eliquis started today) VTE Mechanical Devices: Intermittant Pneumatic CD Resuscitation Status: CPR: Attempt Resuscitation Attending Statement The patient was seen and examined together with Dr. Thomson on 11/30/2016 and I agree with the history, exam and plan as outlined in the note above. . AVNI THOMSON DO Nov 30, 2016 08:03 Gucci Strong MD Dec 02, 2016 15:20 (8.5-10.1) 9.3mg/dL (8.5-10.1) Total Bilirubin 0.3mg/dL (0.0-1.2) 0.2mg/dL (0.0-1.2) Aspartate Amino Transf (AST/SGOT) 29U/L (0-50) 24U/L (0-50) Alanine Aminotransferase (ALT/SGPT) 23U/L (0-32) 21U/L (0-32) Alkaline Phosphatase 87U/L (25-165) 86U/L (25-165) Troponin T < 0.010ug/L (0.0-0.011) 0.010ug/L (0.0-0.011) Pro-B-Type Natriuretic Peptide 393.2pg/mL (0-301) 142.0pg/mL (0-301) Total Protein 7.8g/dL (6.4-8.4) 7.2g/dL (6.4-8.4) Albumin 4.0g/dL (3.4-5.0) 4.1g/dL (3.4-5.0) Procalcitonin 0.06ng/mL (See Comment) < 0.05ng/mL (See Comment) Urine Color Straw (YELLOW) Urine Appearance Clear (CLEAR,HAZY) Urine pH 5.5 (5.0-8.0) Urine Specific [place] 1.010 (1.003-1.035) Urine Protein Negativemg/dL (NEG,TRACE) Urine Glucose (UA) Negativemg/dL (NEGATIVE) Urine Ketones Negativemg/dL (NEGATIVE) Urine Occult Blood Trace (NEGATIVE) Urine Nitrite Negative (NEGATIVE) Urine Bilirubin Negative (NEGATIVE) Urine Urobilinogen Normalmg/dL (NORMAL) Urine Leukocyte Esterase Negative (NEGATIVE) Urine RBC 0-2/hpf (0-2) Urine WBC 0-5/hpf (0-5) Urine Epithelial Cells Few/hpf (NONE-MOD) Urine Crystals None seen (NONE SEEN) Urine Bacteria None/hpf (NONE-FEW) Urine Hyaline Casts Occasional/lpf (NONE) Urine Granular Casts None seen (NONE SEEN) Urine Waxy Casts None seen (NONE SEEN) Urine Red Blood Cell Casts None seen (NONE SEEN) Urine White Blood Cell Casts None seen (NONE SEEN) Urine Mucus Present (None Seen) Urine Trichomonas None seen (NONE SEEN) Urine Yeast None (NONE SEEN) Urine Culture Reflexed Not indicated Microbiology Name: EBONYFABRICIO Age/Sex: 66/F Attend Dr: Sonu Almaraz MD Acct: [id number] Unit: [id number] Status: [place] [facility] [place]/25[place] Disch: Specimen: [id number] Collected: 11/25/16 Status: AMALIA Req#: [id number] Received: 11/26/16 Source: NOSE Sp Desc : Subm Dr: Matt Almaraz MD [place] [facility] [place]: Collected by Nurse/Unit? Y/N Y Procedure Result Verified Site Microbiology SCOT CULT NASAL MRSA SCREEN Final 11/27/16 Screen NEGATIVE for Methicillin Resistant Staph Aureus Microbiology ADENOVIRUS RESPIRATORY PCR Final 11/26/16 Not Detected CORONOVIRUS 229E Final 11/26/16 Not Detected CORONOVIRUS HKU1 Final 11/26/16 Not Detected CORONOVIRUS NL63 Final 11/26/16 Not Detected CORONOVIRUS OC43 Final 11/26/16 Not Detected INFLUENZA A PCR Final 11/26/16 Not Detected INFLUENZA B PCR Final 11/26/16 Not Detected METAPNEUMOVIRUS PCR Final 11/26/16 Not Detected RHINOVIRUS OR ENTEROVIRUS PCR Final 11/26/16 Not Detected PARAINFLUENZA 1 PCR Final 11/26/16 Not Detected PARAINFLUENZA 2 PCR Final 11/26/16 Not Detected PARAINFLUENZA 3 PCR Final 11/26/16 Not Detected PARAINFLUENZA 4 PCR Final 11/26/16 Not Detected RESP SYNCYTIAL VIRUS PCR Final 11/26/161042 Organism 1 RESPIRATORY SYNCYTIAL VIRUS RESPIRATORY SYNCYTIAL PCR DETECTED TIME CALLED: 1024 DATE CALLED: 11/26/16 FLOOR/DOCTOR: ANA LAURA/VALDO Lu CALLED BY: VS Name: FABRICIO BECK Age/Sex: 66/F Attend Dr: Sonu Almaraz MD Acct: [id number] Unit: [id number] Status: AD[place] [facility] [place]11/25/16 Disch: Specimen: [id number] Collected: 11/25/16 Status: RES Req#: [id number] Received: 11/25/16 Source: BLOOD Sp Desc : ELAINE Pozo Dr: Jevon Guillen DO Ordered: NURY Comments: Collected by Nurse/Unit? Y/N N Procedure Result Verified Site Microbiology SCOT CULTURE BLOOD Preliminary 11/27/16 No growth at 2 days; culture examined daily no report between 2-5 days if negative. X-Rays, CTs and MRIs PROCEDURE: X-RAY CHEST, TWO VIEWS ([id number]) . IMPRESSION: Source of current symptoms is not seen, no pneumonia found. Prior CABG. Dictated by: Prince Clark M.D. on 11/29/2016 at 14:23 Approved by: Prince Clark M.D. on 11/29/2016 at 14:24 Cardiac Echo Impressions Echocardiogram Report Interpretation Summary The left ventricular cavity is small. There is mild-moderate concentric left ventricular hypertrophy. The ejection fraction is estimated to be 75-80%. There are no focal wall motion abnormalities. The right ventricle is normal in size and function. The right ventricular systolic pressure is estimated at 34 mmHg assuming a right atrial pressure of 3 mm Hg. The IVC is of normal diameter and collapses greater than 50% with a sniff. This suggests a low right atrial pressure of 3 mm Hg. There is no significant valvular heart disease. No other echocardiographic abnormalities seen. Compared to the prior echo report on 12/13/2010, there is no significant change. 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 Admitted for treatment of bronchitis, atrial fibrillation with RVR. Hospital day 6 1.Infectious bronchitis/sinusitis, failed outpatient augmentin associated w/ reactive airway/hypoxia, acute, present on admission -- Discontinue DuoNeb as patient seems to be having adverse reactions -- wean O2 currently 1 L O2 nc -- Continue to taper prednisone. -- Azithromycin and Rocephin have been discontinued -- Patient positive for RSV, patient placed on droplet cautions -- Continue ocean spray -- Blood cultures negative to date -- Influenza screen negative -- Sputum culture shows normal sean -- Chest x-ray shows no evidence of pneumonia at this time -- Motrin for pain 2. Atrial fibrillation with rapid ventricular response -- Nebulizers discontinued -- Patient is still in atrial fibrillation with rapid ventricular response despite 5 mg of IV metoprolol yesterday, 5 mg of diltiazem IV last night and 30 mg of diltiazem IV early this morning. -- Bedside EKG shows sinus tachycardia -- Telemetry monitoring shows atrial fibrillation with rapid ventricular response. --Continue Diltiazem drip, continue to monitor HR and rhythm -- Continue Eliquis was 5 mg by mouth twice a day. --Discontinued Lovenox sub Q 3.Associated elevated blood glucose --A1c 5.9 -- Continue insulin sliding scale 4.Elevated creatinine-resolved -- Creatinine 1.10 yesterday today 0.74 -- Patient responded well to IV fluids -- We will continue to monitor 5.Acute exacerbation of diastolic HF, acute on chronic. present on admission -- Repeat BNP within normal limits 142 -- Last Echocardiogram showed E-E' 24 with normal EF, sign of diastolic HF --Diltiazem drip slowed down and 40 mg Lasix given, to help improve diastolic HF and edema -- Continue to monitor 6.Hypertension, chronic, improving -- Blood pressure 123/81 -- Continue losartan 50 mg daily -- Continue metoprolol 50 mg daily at bedtime 7.Hyperlipidemia -- Continue Crestor 10 mg daily at bedtime DVT prophylaxis: Lovenox 40 mg subcutaneous daily, SCDs, ambulation Chronic issues known prior to admission, present on admission Paroxysmal A. 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 GI Prophylaxis: H2 ashely VTE Prophylaxis: Sub-Q Enoxaparin, Other (Eliquis started today) VTE Mechanical Devices: Intermittant Pneumatic CD Resuscitation Status: CPR: Attempt Resuscitation AVNI THOMSON DO Nov 30, 2016 08:03
[2016-12-01] VITALS (13 sets, daily range): BP systolic 87–138; BP diastolic 53–80; PULSE 86–138; RESP 17–27; O2SAT 93–98
[2016-12-01] MEDS: Ipratropium 0.02% 0.5 mg/2.5 mL Inhalation Solution NEB SCH ×4 (03:04→21:57)
[2016-12-01 04:27] LABS: Mean Corpuscular Hemoglobin 29.5 pg (27.0-35.0); Mean Corpuscular Volume 87.3 fL (81-100)
[2016-12-01] MEDS: Alum-Mag Hydrox-Simeth 30 mL Suspension PO PRN (04:37)
[2016-12-01 04:43] LABS: INR 0.95 ratio
--- NOTE | 2016-12-01 04:53 | NUR ---
unable to sleep pt unable to sleep even with trazadone given. pt tried many things but unable to fall asleep. pt feeling a little frustrated but thinks its also being in the hospital and being as sick as she is, cardizem gtt back down to 5mg/hr tele AFIB rate 70-90s.
--- NOTE | 2016-12-01 04:55 | NUR ---
pain/cough pt c/o pain in her back but feels like it is coming from her right ribs from coughing so much, tylenol, ibuprofen, Tessalon pearls and Robitussin given thought out the shift to help with pain and cough, pt stating it isn't taking the pain/cough away but keeps it tolerable
[2016-12-01 05:09] LABS: Magnesium 2.4 mg/dL (1.6-2.6)
[2016-12-01] MEDS: Insulin LISPRO 300 Unit/3 mL Inj SUBQ SCH ×4 (08:00→20:23)
[2016-12-01] MEDS: MeTOProlol XL 50 mg ER24 Tablet PO SCH ×2 (09:07→20:08)
--- NOTE | 2016-12-01 09:13 | NUR ---
Social Work: Initial Assessment D: Per EMR review, pt is a 66 year old female admitted for hypoxemia, bronchitis. Pt is [employer] with Medicare; pt has no LTC insurance or VA benefits. PCP is listed as other. NOK Is Mateo Nair, spouse, . Advanced directives not completed-information provided to pt by SECURITY SERVICES MANAGER. Readmit score is low, 11/12. SECURITY SERVICES MANAGER met with pt at bedside to complete IA. Sw role explained. See initial assessment. Pt lives in [place] with her spouse, she is I at baseline. She uses no DME and continues to drive. She has never had HH or skilled rehab. Pt has no concerns about discharge home and states her spouse will transport. EMR reviewed; pt has been ambulating I during admission. Pt expected to be here several more days while cardiology continues to work on pt's AFIB. A: Pt who is I at baseline. P: Anticipate pt to discharge home via POV with no sw needs once medically stable; SECURITY SERVICES MANAGER to continue to follow. MIRZA Bhatia Addendum: 12/01/16 at 0921 by KORY GERONIMO Amended: Links added.
[2016-12-01] MEDS ORDERED: 0.9% Sodium Chloride 250 ML IV ONE (13:20)
[2016-12-01] MEDS ORDERED: 0.9% Sodium Chloride 1,000 ML ONE (16:13)
[2016-12-01] MEDS ORDERED: Diltiazem Inj 125 MG in 0.9% Sodium Chloride 100 ML, Pharmacy To Mix 1 EA IV SCH (16:35)
[2016-12-01] MEDS ORDERED: SODIUM CHLORIDE IV SCH ×2 (16:35)
[2016-12-01] MEDS: Ondansetron 2 mg/mL 2 mL Inj IVPUSH PRN (17:03)
--- NOTE | 2016-12-01 18:27 | NUR ---
Cardizem gtt Cardizem gtt titrated and stopped at 1400. Total of 500cc NS bolus given for 80's/40's, BP improved. HR 100-115. Restart Cardizem gtt order on hold while monitoring BP after starting NS at 60cc/hr. PO Cardizem held, Per . Asymptomatic. Mild nausea after ambulating to BSC with no emesis resolved with 4mg Zofran. 1L - RA throughout the day. Alert and oriented x3.
--- NOTE | 2016-12-01 18:28 | PCM.PNMED ---
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 Admitted for treatment of bronchitis, atrial fibrillation with RVR. Hospital day 7 Overnight: Patient unable to sleep, tele reported a-fib with HR 60-70, dilt drip 5mg/hr Today: Patient sitting in chair comfortably, stated that she is feeling better, but her heart rate climbs high with exertion. 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 Patient denies fever, chills, dysuria, constipation, dizziness, syncope, change in vision, headache. ROS negative except for mentioned above. Exam Vital Signs Vital Sign - Last Date Time Temp Pulse Resp B/P Pulse Ox O2 Delivery O2 Flow Rate FiO2 12/01/16 05:03 86 12/01/16 03:35 36.7 19 118/53 96 Nasal Cannula 1.00 Intake and Output 11/30/16 11/30/16 12/01/16 Cumulative From/Thru 15:00 23:00 07:00 11/25/16 14:18 - 12/01/16 05:57 Intake Total 3433 ml 1156 ml 22070 ml Output Total 3300 ml 800 ml 06222 ml Balance 133 ml 356 ml 772 ml Intake Oral 3352 ml 1072 ml 15705 ml IV Total 81 ml 84 ml 275 ml Output Urine Total 3300 ml 800 ml 56816 ml Emesis 200 ml # Voids 22 # Bowel Movements 4 8 Exam General: Patient is worried about drinking fluids with a time dose of Lasix. HEENT: Head is atraumatic normocephalic. Eyes: Pupils are equally round and reactive to light and accommodation. Extraocular muscles are intact. Sclera are white anicteric. Subconjunctival mucosa is pink and dry. Ears and nose are unremarkable. Oropharynx: There is no mucosal lesions, there is no thrush, there is no pharyngitis. Neck: supple, there are no palpable lymph nodes, or masses or tenderness. Chest: Is clear to auscultation and percussion. There are no rales, rhonchi, wheezes or rubs. Heart: Rate is tachycardic, rhythm is irregular. There is no appreciable murmur , rub or gallop. Abdomen: Normal bowel sounds are present. Abdomen is obese, soft, nontender, no organomegaly, or masses were appreciated. Extremities: Are symmetrical and pulses palpable in all extremities. There is no edema, there is no cellulitis, no rash. Neurologic: There are no focal neurological deficits. Cranial nerves II through XII are intact. There are no sensory or motor deficits. Psychiatric: Patients mood is calm and shows no sign of agitation IVs and Medications Medications Reviewed: Medications were reviewed in detail Medications Tylenol Humalog med correction Lorsartan 50 mg Crestor 10 mg Pepcid 20 Ibuprofen 600 mg TEssalon 10 mg Guidafenisen/codine 5 ml ipatropium Lab and Diagnostics Result Diagram: 12/01/16 0423 12/01/16 0423 Microbiology RESP PCR RESP SYNCYTIAL VIRUS PCR Final 11/26/16-1043 Organism 1 RESPIRATORY SYNCYTIAL VIRUS RESPIRATORY SYNCYTIAL PCR DETECTED X-Rays, CTs and MRIs PROCEDURE: X-RAY CHEST, TWO VIEWS ([id number]) . IMPRESSION: Source of current symptoms is not seen, no pneumonia found. Prior CABG. Dictated by: Prince Clark M.D. on 11/29/2016 at 14:23 Approved by: Prince Clark M.D. on 11/29/2016 at 14:24 Cardiac Echo Impressions Echocardiogram Report Interpretation Summary The left ventricular cavity is small. There is mild-moderate concentric left ventricular hypertrophy. The ejection fraction is estimated to be 75-80%. There are no focal wall motion abnormalities. The right ventricle is normal in size and function. The right ventricular systolic pressure is estimated at 34 mmHg assuming a right atrial pressure of 3 mm Hg. The IVC is of normal diameter and collapses greater than 50% with a sniff. This suggests a low right atrial pressure of 3 mm Hg. There is no significant valvular heart disease. No other echocardiographic abnormalities seen. Compared to the prior echo report on 12/13/2010, there is no significant change. 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 Admitted for treatment of bronchitis, atrial fibrillation with RVR. Hospital day 7 1.Infectious bronchitis/sinusitis positive for RSV, acute, present on admission , improving - Patient positive for RSV, patient placed on droplet cautions - Discontinue DuoNeb as patient seems to be having adverse reactions - Continue Ipratropium neb prn for SOB - Continue to taper prednisone. - Azithromycin and Rocephin have been discontinued, procalcitonin and lactic acid trended down - Continue ocean spray, PRN for nasal dryness - Blood cultures negative to date - Influenza screen negative - Sputum culture shows normal sean - Chest x-ray shows no evidence of pneumonia at this time 2. Atrial fibrillation with rapid ventricular response, acute, present on admission, ongoing - Albuterol nebulizers discontinued - Telemetry monitoring shows atrial fibrillation with rapid ventricular response. - Patient is still in atrial fibrillation with rapid ventricular response despite continuing Diltiazem drip 5mg hr and adding Metoprol 25 mg with low blood pressures 90/50. Discussed fluid status with patient she stated that she has not been drinking because she was concerned about her volume status. - Patient given 250 bolus NS IV - Started IVF NS @ 60 mls/hr - Continue Diltiazem drip, continue to monitor HR and rhythm, inadequate response to Diltiazem drip with low blood pressures likely due to dehydration, reassess volume status tomorrow - Continue Metoprolol 50 mg BID - Continue Eliquis was 5 mg by mouth twice a day. - Discontinued Lovenox sub Q 3.Acute exacerbation of diastolic HF, acute on chronic. present on admission, improving - BNP within normal limits 142 - Last Echocardiogram showed E-E' 24 with normal EF, sign of diastolic HF - Diltiazem drip slowed down and 40 mg Lasix given, to help improve diastolic HF and edema - Continue to monitor 4.Associated elevated blood glucose - A1c 5.9 - Continue insulin sliding scale 5.Elevated creatinine-resolved - Creatinine 1.10 11/29/16 today 0.89 - Patient responded well to IV fluids - We will continue to monitor 6.Hypertension, chronic, improving - Continue losartan 50 mg daily - Continue metoprolol 50 mg BID 7.Hyperlipidemia,chronic, presumed stable - Continue Crestor 10 mg daily at bedtime 8. Aortic arch repair in 1999/hypertension, chronic, presumed stable -continue to monitor 9. Hypothyroidism, chronic -TSH ordered 10. Diverticulitis, chronic, presumed stable -continue to monitor 11. GERD/PUD, chronic, presumed stable -continue to monitor 12 Recurrent UTI, chronic, presumed stable - UA on admission negative -continue to monitor 13. Arthritis/back injury, chronic, presumed stable -continue to monitor -Heating pad for back, PRN -Recommend OMT as outpatient DVT prophylaxis: Eliquis was 5 mg, SCDs, ambulation Code full Disposition: Will depend on patient's response to IV Cardizem and conversion to PO medication likely discharge to home in 48 hours . GI Prophylaxis: H2 ashely VTE Prophylaxis: Sub-Q Enoxaparin, Other (Eliquis started today) VTE Mechanical Devices: Intermittant Pneumatic CD Resuscitation Status: CPR: Attempt Resuscitation Attending Statement The patient was seen and examined together with Dr. Thomson on 12/01/2016 and I agree with the history, exam and plan as outlined in the note above. . AVNI THOMSON DO Dec 01, 2016 06:43 Gucci Strong MD Dec 02, 2016 15:21 Alanine Aminotransferase (ALT/SGPT) 23U/L (0-32) 21U/L (0-32) Alkaline Phosphatase 87U/L (25-165) 86U/L (25-165) Troponin T < 0.010ug/L (0.0-0.011) 0.010ug/L (0.0-0.011) Pro-B-Type Natriuretic Peptide 393.2pg/mL (0-301) 142.0pg/mL (0-301) Total Protein 7.8g/dL (6.4-8.4) 7.2g/dL (6.4-8.4) Albumin 4.0g/dL (3.4-5.0) 4.1g/dL (3.4-5.0) Procalcitonin 0.06ng/mL (See Comment) < 0.05ng/mL (See Comment) Urine Color Straw (YELLOW) Urine Appearance Clear (CLEAR,HAZY) Urine pH 5.5 (5.0-8.0) Urine Specific [place] 1.010 (1.003-1.035) Urine Protein Negativemg/dL (NEG,TRACE) Urine Glucose (UA) Negativemg/dL (NEGATIVE) Urine Ketones Negativemg/dL (NEGATIVE) Urine Occult Blood Trace (NEGATIVE) Urine Nitrite Negative (NEGATIVE) Urine Bilirubin Negative (NEGATIVE) Urine Urobilinogen Normalmg/dL (NORMAL) Urine Leukocyte Esterase Negative (NEGATIVE) Urine RBC 0-2/hpf (0-2) Urine WBC 0-5/hpf (0-5) Urine Epithelial Cells Few/hpf (NONE-MOD) Urine Crystals None seen (NONE SEEN) Urine Bacteria None/hpf (NONE-FEW) Urine Hyaline Casts Occasional/lpf (NONE) Urine Granular Casts None seen (NONE SEEN) Urine Waxy Casts None seen (NONE SEEN) Urine Red Blood Cell Casts None seen (NONE SEEN) Urine White Blood Cell Casts None seen (NONE SEEN) Urine Mucus Present (None Seen) Urine Trichomonas None seen (NONE SEEN) Urine Yeast None (NONE SEEN) Urine Culture Reflexed Not indicated Microbiology Name: FABRICIO BECK Age/Sex: 66/F Attend Dr: Sonu Almaraz MD Acct: [id number] Unit: [id number] Status: ADM IN Location: [facility] [place] 1006-1 Re11/25/16 Disch: Specimen: [id number] Collected: 11/25/16 Status: AMALIA Req#: [id number] Received: 11/26/16 Source: NOSE Sp Desc : Subm Dr: Matt Almaraz MD Ordered: MRSAC Comments: Collected by Nurse/Unit? Y/N Y Procedure Result Verified Site Microbiology SCTO CULT NASAL MRSA SCREEN Final 11/27/16 Screen NEGATIVE for Methicillin Resistant Staph Aureus Microbiology ADENOVIRUS RESPIRATORY PCR Final 11/26/16 Not Detected CORONOVIRUS 229E Final 11/26/16 Not Detected CORONOVIRUS HKU1 Final 11/26/16 Not Detected CORONOVIRUS NL63 Final 11/26/16 Not Detected CORONOVIRUS OC43 Final 11/26/16 Not Detected INFLUENZA A PCR Final 11/26/16 Not Detected INFLUENZA B PCR Final 11/26/16 Not Detected METAPNEUMOVIRUS PCR Final 11/26/16 Not Detected RHINOVIRUS OR ENTEROVIRUS PCR Final 11/26/16 Not Detected PARAINFLUENZA 1 PCR Final 11/26/16 Not Detected PARAINFLUENZA 2 PCR Final 11/26/16 Not Detected PARAINFLUENZA 3 PCR Final 11/26/16 Not Detected PARAINFLUENZA 4 PCR Final 11/26/16-1042 Not Detected RESP SYNCYTIAL VIRUS PCR Final 11/26/16- 1042 Organism 1 RESPIRATORY SYNCYTIAL VIRUS RESPIRATORY SYNCYTIAL PCR DETECTED TIME CALLED: 1025 DATE CALLED: 11/26/16 FLOOR/DOCTOR: ANA LAURA/VALDO Lu CALLED BY: VS Name: FABRICIO BECK Age/Sex: 66/F Attend Dr: Sonu Almaraz MD Acct: [id number] Unit: [id number] Status: ADM IN Location: [place] [address] Re11/25/16 Disch: Specimen: [id number] Collected: 11/25/16 Status: RES Req#: [id number] Received: 11/25/16 Source: BLOOD Sp Desc : ELAINE Pozo Dr: Jevon Guillen DO Ordered: NURY Comments: Collected by Nurse/Unit? Y/N N Procedure Result Verified Site Microbiology SCOT CULTURE BLOOD Preliminary 11/27/16-1543 No growth at 2 days; culture examined daily no report between 2-5 days if negative. X-Rays, CTs and MRIs PROCEDURE: X-RAY CHEST, TWO VIEWS ([id number]) . IMPRESSION: Source of current symptoms is not seen, no pneumonia found. Prior CABG. Dictated by: Prince Clark M.D. on 11/29/2016 at 14:23 Approved by: Prince Clark M.D. on 11/29/2016 at 14:24 Cardiac Echo Impressions Echocardiogram Report Interpretation Summary The left ventricular cavity is small. There is mild-moderate concentric left ventricular hypertrophy. The ejection fraction is estimated to be 75-80%. There are no focal wall motion abnormalities. The right ventricle is normal in size and function. The right ventricular systolic pressure is estimated at 34 mmHg assuming a right atrial pressure of 3 mm Hg. The IVC is of normal diameter and collapses greater than 50% with a sniff. This suggests a low right atrial pressure of 3 mm Hg. There is no significant valvular heart disease. No other echocardiographic abnormalities seen. Compared to the prior echo report on 12/13/2010, there is no significant change. 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 Admitted for treatment of bronchitis, atrial fibrillation with RVR. Hospital day 7 1.Infectious bronchitis/sinusitis positive for RSV, acute, present on admission , improving - Patient positive for RSV, patient placed on droplet cautions - Discontinue DuoNeb as patient seems to be having adverse reactions - Continue Ipratropium neb prn for SOB - Continue to taper prednisone. - Azithromycin and Rocephin have been discontinued, procalcitonin and lactic acid trended down - Continue ocean spray, PRN for nasal dryness - Blood cultures negative to date - Influenza screen negative - Sputum culture shows normal sean - Chest x-ray shows no evidence of pneumonia at this time 2. Atrial fibrillation with rapid ventricular response - Albuterol nebulizers discontinued - Telemetry monitoring shows atrial fibrillation with rapid ventricular response. - Patient is still in atrial fibrillation with rapid ventricular response despite continuing Diltiazem drip 5mg hr and adding Metoprol 25 mg with low blood pressures 90/50. Discussed fluid status with patient she stated that she has not been drinking because she was concerned about her volume status. - Patient given 250 bolus NS IV - Started IVF NS @ 60 mls/hr - Continue Diltiazem drip, continue to monitor HR and rhythm, inadequate response to Diltiazem drip with low blood pressures likely due to dehydration, reassess volume status tomorrow - Continue Eliquis was 5 mg by mouth twice a day. - Discontinued Lovenox sub Q 3.Associated elevated blood glucose - A1c 5.9 - Continue insulin sliding scale 4.Elevated creatinine-resolved - Creatinine 1.10 11/29/16 today 0.89 - Patient responded well to IV fluids - We will continue to monitor 5.Acute exacerbation of diastolic HF, acute on chronic. present on admission, improving - BNP within normal limits 142 - Last Echocardiogram showed E-E' 24 with normal EF, sign of diastolic HF - Diltiazem drip slowed down and 40 mg Lasix given, to help improve diastolic HF and edema - Continue to monitor 6.Hypertension, chronic, improving - Continue losartan 50 mg daily - Continue metoprolol 50 mg BID 7.Hyperlipidemia,chronic, presumed stable - Continue Crestor 10 mg daily at bedtime 8. Aortic arch repair in 1999/hypertension, chronic, presumed stable -continue to monitor 9. Hypothyroidism, chronic -TSH ordered 10. Diverticulitis, chronic, presumed stable -continue to monitor 11. GERD/PUD, chronic, presumed stable -continue to monitor 12 Recurrent UTI, chronic, presumed stable - UA on admission negative -continue to monitor 13. Arthritis/back injury, chronic, presumed stable -continue to monitor -Heating pad for back, PRN -Recommend OMT as outpatient DVT prophylaxis: Eliquis was 5 mg, SCDs, ambulation Code full Disposition: Will depend on patient's response to IV Cardizem and conversion to PO medication likely discharge to home in 48 hours . GI Prophylaxis: H2 ashely VTE Prophylaxis: Sub-Q Enoxaparin, Other (Eliquis started today) VTE Mechanical Devices: Intermittant Pneumatic CD Resuscitation Status: CPR: Attempt Resuscitation AVNI THOMSON DO Dec 01, 2016 06:43
[2016-12-01] MEDS ORDERED: Diltiazem CD 120 mg ER24 Capsule PO SCH (21:00)
[2016-12-01] MEDS ORDERED: diphenhydrAMINE 25 mg Capsule PO ONE (21:00)
[2016-12-02] VITALS (12 sets, daily range): BP systolic 90–121; BP diastolic 46–90; PULSE 88–116; RESP 15–23; O2SAT 93–98
[2016-12-02] MEDS: Codeine-guaiFENesin 10 mL Syrup PO PRN ×2 (00:47→23:06)
[2016-12-02] MEDS: Ipratropium 0.02% 0.5 mg/2.5 mL Inhalation Solution NEB SCH ×4 (03:30→20:30)
[2016-12-02] MEDS ORDERED: 0.9% Sodium Chloride 1,000 ML IV ONE (04:35)
--- NOTE | 2016-12-02 04:41 | NUR ---
Tele/ Pain Discussed plan of care with dr. Morton. plan overnight to gently rehydrate pt w/ NS @ 60ml/hr. Tele has been Afib 90-low 100s, increasing to 1-teens with activity. Pt BP still on the hypotensive side. SBP 90-low 100s. MD aware dilt gtt not infusing because of low BP- closely monitoring HR overnight. Pt c/o generalized back and rib pain from coughing. PRN Tylenol, Tessalon, Robitussin given in addition to K pad. Pt still very restless, states she normally takes Benadryl for sleep, and that she "has not slept since sunday". Resident made aware and order received for Benadryl. shortly after pt requesting ibuprofen for back pain. MD made aware and order received and given. Pt only sleeping minimally overnight. up to BSC frequently.
[2016-12-02 05:55] LABS: Mean Corpuscular Hemoglobin 29.9 pg (27.0-35.0); Mean Corpuscular Volume 87.5 fL (81-100)
[2016-12-02] MEDS: Insulin LISPRO 300 Unit/3 mL Inj SUBQ SCH ×4 (08:00→20:20)
[2016-12-02] MEDS: MeTOProlol XL 50 mg ER24 Tablet PO SCH ×3 (08:08→21:16)
--- NOTE | 2016-12-02 13:57 | PCM.PNMED ---
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 Admitted for treatment of bronchitis, atrial fibrillation with RVR. Hospital day 8 Overnight: Patient unable to sleep due to back pain, requesting ibuprofen and Benadryl for sleep "I would take Benadryl for sleep at home" patient given heating pad, ibuprofen and Benadryl for sleep Today: Patient disappointed with protracted hospital stay and difficulty with controlling heart rate and blood pressure. Patient stated that she feels worse after getting fluids. Patient stated that she is not breathing as well as she was yesterday and is urinating more. Patient denies fever, chills, dysuria, constipation, diarrhea, syncope, lightheadedness. ROS negative except for mentioned above. Exam Vital Signs Vital Sign - Last Date Time Temp Pulse Resp B/P Pulse Ox O2 Delivery O2 Flow Rate FiO2 12/02/16 03:31 106 18 95 Room Air 12/02/16 03:28 36.4 121/90 12/01/16 08:30 1.00 Intake and Output 12/01/16 12/01/16 12/02/16 Cumulative From/Thru 15:00 23:00 07:00 11/25/16 14:18 - 12/02/16 06:07 Intake Total 736 ml 1597 ml 64589 ml Output Total 950 ml 1150 ml 44720 ml Balance -214 ml 447 ml 1005 ml Intake Oral 736 ml 640 ml 21661 ml IV Total 957 ml 1232 ml Output Urine Total 950 ml 1150 ml 05563 ml Emesis 200 ml # Voids 22 # Bowel Movements 1 9 Exam General: alert and oriented, no acute distress, able to ambulate with minimal assistance HEENT: Head is atraumatic normocephalic. Eyes: Pupils are equally round and reactive to light and accommodation. Extraocular muscles are intact. Sclera are white anicteric. Subconjunctival mucosa is pink and dry. Ears and nose are unremarkable. Oropharynx: There is no mucosal lesions, there is no thrush, there is no pharyngitis. Neck: supple, there are no palpable lymph nodes, or masses or tenderness. Chest:fine crackles head at bases bilaterally . There are no no wheezes or rubs. Heart: Rate is tachycardic, rhythm is irregular. There is no appreciable murmur , rub or gallop. Abdomen: Normal bowel sounds are present. Abdomen is obese, soft, nontender, no organomegaly, or masses were appreciated. Extremities: Are symmetrical and pulses palpable in all extremities. There is no edema, there is no cellulitis, no rash. Neurologic: There are no focal neurological deficits. Cranial nerves II through XII are intact. There are no sensory or motor deficits. Psychiatric: Patients mood is calm and shows no sign of agitation Lab and Diagnostics Result Diagram: 12/02/16 0443 12/02/16 0443 Microbiology RESP PCR RESP SYNCYTIAL VIRUS PCR Final 11/26/16-1043 Organism 1 RESPIRATORY SYNCYTIAL VIRUS RESPIRATORY SYNCYTIAL PCR DETECTED X-Rays, CTs and MRIs PROCEDURE: X-RAY CHEST, TWO VIEWS ([id number]) . IMPRESSION: Source of current symptoms is not seen, no pneumonia found. Prior CABG. Dictated by: Prince Clark M.D. on 11/29/2016 at 14:23 Approved by: Prince Clark M.D. on 11/29/2016 at 14:24 Cardiac Echo Impressions Echocardiogram Report Interpretation Summary The left ventricular cavity is small. There is mild-moderate concentric left ventricular hypertrophy. The ejection fraction is estimated to be 75-80%. There are no focal wall motion abnormalities. The right ventricle is normal in size and function. The right ventricular systolic pressure is estimated at 34 mmHg assuming a right atrial pressure of 3 mm Hg. The IVC is of normal diameter and collapses greater than 50% with a sniff. This suggests a low right atrial pressure of 3 mm Hg. There is no significant valvular heart disease. No other echocardiographic abnormalities seen. Compared to the prior echo report on 12/13/2010, there is no significant change. 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 Admitted for treatment of bronchitis, RSV + , atrial fibrillation with RVR. Hospital day 8 1.Infectious bronchitis/sinusitis positive for RSV, acute, present on admission , improving - Patient positive for RSV, patient placed on droplet cautions - Discontinue DuoNeb as patient seems to be having adverse reactions - Continue Ipratropium neb prn for SOB - Stop prednisone - Azithromycin and Rocephin have been discontinued, procalcitonin and lactic acid trended down - Continue ocean spray, PRN for nasal dryness - Blood cultures negative to date - Influenza screen negative - Sputum culture shows normal sean - Chest x-ray shows no evidence of pneumonia at this time 2. Atrial fibrillation with rapid ventricular response, acute, present on admission, ongoing - Albuterol nebulizers discontinued - Telemetry monitoring shows atrial fibrillation with rapid ventricular response. - Patient is still in atrial fibrillation due to suboptimal response to diltiazem drip and difficulty controlling blood pressures, stop Diltazem. - Stop IVF NS @ 60 mls/hr patient volume overloaded noted by fine crackles at lung bases and increased urination - Start Metoprolol 50 mg TID - Stop Losartan - Patient encouraged to mobilize with assistance as tolerated by HR and blood pressure - PT ordered for gentle mobilization up and out of bed - Continue Eliquis was 5 mg by mouth twice a day. - Discontinued Lovenox sub Q 3.Acute exacerbation of diastolic HF, acute on chronic. present on admission, improving - BNP within normal limits 142 - Last Echocardiogram showed E-E' 24 with normal EF, sign of diastolic HF - Hold IV fluids - Continue to monitor 4.Associated elevated blood glucose - A1c 5.9 - Continue insulin sliding scale 5.Elevated creatinine-resolved - Creatinine 1.10 11/29/16 today 0.89 - Patient responded well to IV fluids - We will continue to monitor 6.Hypertension, chronic, improving - Stop losartan 50 mg daily - Continue metoprolol 50 mg BID 7.Hyperlipidemia,chronic, presumed stable - Continue Crestor 10 mg daily at bedtime 8. Aortic arch repair in 1999/hypertension, chronic, presumed stable -continue to monitor 9. Hypothyroidism, chronic -TSH ordered 10. Diverticulitis, chronic, presumed stable -continue to monitor 11. GERD/PUD, chronic, presumed stable -continue to monitor 12 Recurrent UTI, chronic, presumed stable - UA on admission negative -continue to monitor 13. Arthritis/back injury, chronic, presumed stable -continue to monitor -Heating pad for back, PRN -Recommend OMT as outpatient DVT prophylaxis: Eliquis was 5 mg, SCDs, ambulation Code full Disposition: Likely discharge to home in 24-48 hours with good HR control and blood pressure control, GI Prophylaxis: H2 ashely VTE Prophylaxis: Sub-Q Enoxaparin, Other (Eliquis started today) VTE Mechanical Devices: Intermittant Pneumatic CD Resuscitation Status: CPR: Attempt Resuscitation Attending Statement The patient was seen and examined together with Dr. Thomson on 12/02/2016 and I agree with the history, exam and plan as outlined in the note above. . AVNI THOMSON DO Dec 02, 2016 06:48 Gucci Strong MD Dec 02, 2016 15:21
[2016-12-02] MEDS: Alum-Mag Hydrox-Simeth 30 mL Suspension PO PRN (16:22)
--- NOTE | 2016-12-02 16:24 | NUR ---
Blood pressure Patient's blood pressure continues to fluctuate between 122/96 to 95/65. Patients HR continues in Afib. Patient states she is asymptotic, however states she can feel her heart racing, becomes SOB when moving from bed to BSC to chair to bed. MD aware. Care continues.
--- NOTE | 2016-12-02 18:11 | DRSVH ---
PROCEDURE: X-RAY CHEST ONE VIEW, PORTABLE ([id number]) INDICATIONS: SHORTNESS OF BREATH TECHNIQUE: One view of the chest was acquired. COMPARISON: [facility], CR, XR CHEST 2VW, 11/29/2016, 9:46. [facility], CR, XR CHEST 2VW, 11/25/2016, 14:26. FINDINGS: Surgical changes and devices: Sternotomy. Lungs and pleura: No pleural effusions or pneumothorax. Lungs are clear. Right hemidiaphragm event ration. Mediastinum: Mediastinal contours appear normal. Heart size is normal. Bones and chest wall: No suspicious bony lesions. Overlying soft tissues appear unremarkable. IMPRESSION: No active cardiopulmonary disease. Dictated by: Joby Zhao M.D. on 12/02/2016 at 18:08 Approved by: Joby Zhao M.D. on 12/02/2016 at 18:09
--- NOTE | 2016-12-02 18:47 | NUR ---
CT scan Patient off floor for CT Scan and ultrasound at approximately 1840.
--- NOTE | 2016-12-02 19:34 | DRSVH ---
PROCEDURE: CT CHEST, ABDOMEN AND PELVIS WITHOUT CONTRAST ([id number]) INDICATIONS: INTRACTABLE BACK PAIN TECHNIQUE: After the administration of oral contrast, 5 mm thick sections acquired from the lung apices to the s ymphysis pubis. 5 mm thick coronal and sagittal reformats acquired, with additional 7 mm coronal MIP reformats through the lungs. For radiation dose reduction, the following was used: automated expos ure control, adjustment of mA and/or kV according to patient size. COMPARISON: None. FINDINGS: Image quality: Excellent. CHEST: Lungs and pleura: There is 4 mm nodule in the right middle lobe. No acute pulmonary opacities. No p leural effusions or pneumothorax. Central and peripheral airways are patent are normal in caliber. Mediastinum: Heart size is normal. No pericardial effusion. No mediastinal adenopathy by CT size c riteria. Thoracic aorta and central pulmonary arteries are normal in size. Aortic calcification con sistent with atherosclerosis. Esophagus is normal in caliber. No hiatal hernia. Chest wall: No axillary or supraclavicular adenopathy by size criteria. Thyroid gland is normal. ABDOMEN: Solid organs: Liver and spleen are normal in size. Gallbladder is normal. Pancreas is normal in co ntours. There is a 7 mm right adrenal nodule with low CT density compatible with adenoma. Both kidne ys are normal in size, without hydronephrosis or nephrolithiasis. There are bilateral parapelvic cys ts at Peritoneum and bowel: There are scattered colonic diverticula. No evidence for active diverticulitis . Small and large bowel loops are normal in caliber and wall thickness. No free fluid or air. Nodes and vessels: No retroperitoneal or mesenteric adenopathy by size criteria. Aorta and inferior vena cava are normal in size. Miscellaneous: No ventral hernias. PELVIS: Genitourinary: Bladder wall thickness is normal. Uterus is normal. Ovaries are prominent. No pathol ogical free fluid. Miscellaneous: No inguinal hernias or adenopathy. Bones: No suspicious bony lesions. No vertebral body compression fractures. Mild scoliosis. Severe degenerative changes in lumbar spine. There are laminectomies and spinal fusion at L3-L4 and L5-S1. IMPRESSION: 1. No acute process identified. 2. Bilateral parapelvic cysts in kidneys. 3. Diverticulosis. No active diverticulitis. 4. Atherosclerosis. 5. A 4 mm nodule in the right middle. Recommend CT followup (please see below for recommendation). 6. Small left adrenal adenoma. 7. Extensive degenerative and postsurgical changes in lumbar spine. Fleischner Society criteria for SOLID lung nodule followup. Nodule size (mm)Low-risk patientHigh-risk [id number] follow-up neededFollow-up at 12 mo; if no hayes e, no further follow-up>0-9Yxdena-dh CT at 12 mo; if no change, no further follow-up needed.Initial f ollow-up CT at 6-12 mo, then 18-24 mo if no change. >6-8Initial follow-up CT at 6-12 mo, then 18-24 mo if no change. Initial follow-up CT at 3-6 mo, then 9-12 mo and 24 mo if no change. >8Follow-up CT at 3, 9, 24 mo. Or PET and/or biopsy.Same as for low-risk pts. Dictated by: Joby Zhao M.D. on 12/02/2016 at 19:20 Approved by: Joby Zhao M.D. on 12/02/2016 at 19:32
--- NOTE | 2016-12-02 20:12 | CONS ---
[address] [address] CONSULTATION REPORT PATIENT: FABRICIO BECK : 1950 MR#: [id number] ADMIT: 11/25/2016 JOB ID: [id number] DATE OF SERVICE: 12/02/2016 CARDIOLOGY CONSULT: REASON FOR CONSULT: For the evaluation of atrial fibrillation. CHIEF COMPLAINT: Productive cough. Also had headache, shortness of breath, wheezing prior to hospital admission. The patient got admitted to the hospital on November 25, 2016. 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 According to the patient initially her was sick at home, then she developed headache and started coughing greenish-yellowish sputum. One week prior to the hospital admission she was seen in urgent care and was started on Augmentin, however her symptoms started getting worse. Hence, it was decided to be seen at the ED. In the emergency department she was hypoxic. On room air, her oxygen saturation was 85%, respiratory rate 30, with on going wheezes. She was found to have a viral infection. It was positive for respiratory syncytial virus. Since then, she has been in the hospital. At around November 28 she converted to atrial fibrillation with fast ventricular rate. Since then, she has been in atrial fibrillation. When the heart rate goes up she feels it. Initially she was on Cardizem drip for anticoagulation. She was started Eliquis. Because of blood pressure concerns Cardizem drip was discontinued. She was started on beta ashely and now she is on metoprolol succinate about 50 mg three times a day. Now the heart rate in 100 range; if she moves, it goes up. Intermittently she will get shortness of breath and chest discomfort when the heart rate goes up. According to the patient when she had thoracic aorta aneurysm surgery, at that time left heart catheterization did not reveal any coronary artery disease. I do not have official report. She denies any history of valve repair or valve replacement. Denies any known history of Marfan's or bicuspid aortic valve. She does not have a family history of thoracic aorta aneurysm other than one uncle who had abdominal aortic aneurysm. No known history of rheumatic heart disease or coronary artery disease or myocardial infarction or congestive heart failure. Denies any excessive alcohol abuse. She has a history of sleep apnea but from last one year she is not using CPAP. In the hospital her serial troponins were normal. She had echocardiogram on November 26, 2016, which I reviewed myself. Left ventricular cavity was small, with hyperdynamic left ventricular function, with LV ejection fraction 75% to 80%, with mild to moderate concentric LVH, with mild to moderate TR, and pulmonary artery systolic pressure was about 34 mmHg, with right atrial pressure about 3 mmHg. No significant pericardial effusion. Right ventricular function was normal. PAST MEDICAL HISTORY: History of thoracic aorta aneurysm repair at [facility] around 2009 details not available, history of paroxysmal AFIB, essential hypertension, hyperlipidemia, hypothyroidism, history of pneumonia in the past, diverticulosis, GERD, UTI, arthritis, back injury, depression. The patient denies any active stomach ulcer or bleeding. ALLERGIES: The patient is allergic to iodine, shellfish, hydromorphone, . SOCIAL HISTORY: She drinks alcohol only occasionally. Denies any smoking history or substance abuse. FAMILY HISTORY: As stated above. REVIEW OF SYSTEMS: Ten point review of systems was obtained and it is negative except as stated above. MEDICATIONS: At home she was on: 1. Losartan 50 mg daily. 2. Metoprolol succinate 50 mg daily. 3. Rosuvastatin 10 mg daily. 4. Lisinopril 10 mg daily. 5. Omeprazole. 6. Citalopram 20 mg q.h.s. 7. Aspirin 325 mg daily. 8. Cephalexin 500 mg q.i.d. 9. Multivitamins. PHYSICAL EXAMINATION: Blood pressure about 106/71, heart rate is about 104 irregular, respiratory rate 15, oxygen saturation about 92% on room air. HEENT: The patient is obese. No significant anemia, jaundice. Neck: No apparent JVD. Chest: Decreased air entry with prolonged bilateral expiatory phase. At present very few rhonchi at the bases. CVS: S1 variable. P2 does not appear to be loud no S3. No S4. No significant murmur. Abdomen: Obese. No obvious pulsatile mass felt. No obvious hepatosplenomegaly. MASTER BLACK BELT: Alert. Oriented to time, place, and person. No obvious motor or sensory deficit. Extremities: Mild pedal edema. Vascular: No evidence of critical limb ischemia. LABORATORIES: WBC 9.9, hemoglobin 13.7, platelets 328. Sodium 137, potassium 4.8, BUN 26, creatinine 0.67. TSH 1.82, magnesium 2.4. Total bilirubin 0.2, AST 28, ALT 37, alkaline phosphatase 70. Procalcitonin less than 0.05. INR 0.95. EKG on November 29, 2016 at 3:21 a.m. revealed atrial fibrillation with fast ventricular rate about 113, without any significant ST-T changes. QTc 432 msec. On admission her serial troponins were normal. ProBNP initially was 393 and on November 26 it was 142. The x-ray chest today did not reveal any acute active cardiopulmonary disease. ASSESSMENT: 1. History of paroxysmal atrial fibrillation. At present in persistent atrial fibrillation with fast ventricular rate. 2. Respiratory syncytial viral respiratory infection with hypoxemia during presentation. 3. History of thoracic aortic aneurysm repair (details not available). 4. History of essential hypertension, hypercholesterolemia, and other problems as stated above. PLAN: The patient has trigger for atrial fibrillation. She has sleep apnea which is not being treated. On top of that, she was hypoxic with viral respiratory infection. During admission her serial troponins were normal. On 2D echo the patient has hyperdynamic left ventricular function. There was no significant pulmonary hypertension. No pericardial effusion. According to the patient, when she had thoracic aneurysm surgery around 2009, at that time she did not have any coronary artery disease. Considering her CHADS2 vascular score, which appears to be three including history of hypertension, female, and vascular disease, and annual risk of stroke about 3.2%, she will need anticoagulation. Agreed with Eliquis 5 mg twice a day. At present she is on rate control strategy. She is on good doses of beta ashely which is not very effective, hence I will give her trial of calcium channel ashely on top of beta ashely. Will start with slow acting like regular Cardizem 30 mg three times a day as her blood pressure is at the low end. We will see how she does. Hopefully once her respiratory condition gets better, atrial fibrillation will get better. At present she is not getting albuterol type of bronchodilators. I discussed with the patient as well as her rate control versus rhythm control approach. 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 If there is difficulty in getting rate control, then one of the options is to do a DEREK cardioversion. Will see how she does. In the hospital with above-mentioned strategy. Cardiology service will continue to follow this patient. Thanks for the cardiology consult. TIME: Total time spent about 80 minutes.
--- NOTE | 2016-12-02 20:17 | DRSVH ---
PROCEDURE: US VENOUS LEG DUPLEX BILATERAL INDICATIONS: SOB, R/o DVT TECHNIQUE: Real-time imaging, as well as color and pulse Doppler interrogation, were performed of the deep veins of both legs from the inguinal ligament to the popliteal fossa. COMPARISON: None. FINDINGS: The deep veins are normally compressible, and free of intraluminal thrombus. Color and pu lse Doppler demonstrate normal phasic intravascular flow. There is normal augmentation response to d istal compression maneuver. IMPRESSION: No DVT in lower extremities. Dictated by: Joby Zhao M.D. on 12/02/2016 at 20:15 Approved by: Joby Zhao M.D. on 12/02/2016 at 20:15
[2016-12-03] VITALS (9 sets, daily range): BP systolic 100–111; BP diastolic 52–71; PULSE 90–113; RESP 16–22; O2SAT 95–97
[2016-12-03] MEDS: Alum-Mag Hydrox-Simeth 30 mL Suspension PO PRN ×3 (00:15→21:13)
[2016-12-03 03:20] LABS: BASOPHILS % (AUTO) 0.4 % (0-3); EOSINOPHILS % (AUTO) 2.6 % (0-5); MONOCYTES % (AUTO) 12.4 % (4-12); Mean Corpuscular Hemoglobin 29.4 pg (27.0-35.0); Mean Corpuscular Volume 88.2 fL (81-100); NEUTROPHILS % (AUTO) 71.2 % (40-74); Platelet Count 323 bil/L (150-400)
[2016-12-03] MEDS: Ondansetron 2 mg/mL 2 mL Inj IVPUSH PRN (05:30)
[2016-12-03] MEDS: Insulin LISPRO 300 Unit/3 mL Inj SUBQ SCH ×4 (08:00→21:15)
[2016-12-03] MEDS: MeTOProlol XL 50 mg ER24 Tablet PO SCH ×3 (08:48→21:14)
--- NOTE | 2016-12-03 13:40 | NUR ---
Evaluation completed/up ad fredrick Please go to "Notes" then click on "Assessments and Notes" (bottom left corner of screen). Then select appropriate discipline tab on top of screen. no further PT; OK to be up ad fredrick
--- NOTE | 2016-12-03 15:41 | NUR ---
Activity Pt up with PT this afternoon and stable with a HR Afib 100-112. Mild SOB noted. Later in the afternoon she got up and walked the kaplan with her . Pt was on RA and stated slight SOB, HR 100's. After getting back to the room she felt weakness and fatigue. Plans to rest and will ambulate again later this evening.
--- NOTE | 2016-12-03 16:38 | PROG NOTE ---
[address] [address] PROGRESS NOTE PATIENT: FABRICIO BCEK : 1950 MR#: [id number] ADMIT: 11/25/2016 JOB ID: [id number] DATE: 12/03/2016 SUBJECTIVE: The patient is feeling much better today. She has started walking in the hospital. No active chest pain or worsening shortness of breath or worsening cough, hemoptysis, etc. OBJECTIVE: Blood pressure 101/57, heart rate during the night was in 80s-90s and daytime around 100-110. Pulse ox 96% oxygen saturation at 1 L. Neck: No apparent JVP. Chest: Decreased air entry but no obvious crepitation or rhonchi. CVS: S1 variable, P2 does not appear to be loud. No S3. No S4. Abdomen obese. No obvious pulsatile mass. SALES PLANNING COORDINATOR: Alert, oriented to time, place, and person. No obvious motor or sensory deficit. Extremities: Mild pedal edema. Vascular: No evidence of critical limb ischemia. Telemetry: Atrial fibrillation with fast ventricular rate. LABORATORY: WBC 8.6, hemoglobin 13.5, Sodium 140, potassium 4.8, BUN 19, creatinine 0.62. ASSESSMENT/PLAN: Known history of paroxysmal atrial fibrillation with recurrence of atrial fibrillation during hospital admission in the setting of respiratory syncytial virus, bronchitis, hypoxemia with underlying history of essential hypertension, obstructive sleep apnea which is untreated as well as hypercholesterolemia and history of thoracic aortic aneurysm repair in the remote past. According to the patient, she had history of aneurysm repair in 2009 which was a thoracic aneurysm. Details not available. At that time, she had a left heart catheterization and did not have any coronary artery disease. We do not have any obvious operative port. The patient has been started on apixaban for anticoagulation. She is on maximum tolerable dose of beta ashely. Yesterday, I started her on Cardizem 30 mg three times a day and she got 1st dose last night. She has been tolerating it. Today, she is feeling better. She is ambulating. In the hospital she has ruled out for acute myocardial infarction. She had a 2D echo in November 26, 2016. At that time, she has hyperdynamic left ventricular ejection fraction 75%-80%, bybf-gn-nnhefjuf LVH, lmcw-gd-noxgnuri TR and pulmonary artery systolic pressure was about 34 mmHg. Right atrial pressure about 3 [address] She had a [address] chest and abdomen yesterday which did not reveal any significant aortic enlargement, however, there was atherosclerosis in the aorta. As far as atrial fibrillation is concerned, at this point of time recommend rate control approach plus continuation of anticoagulation. Hopefully, once respiratory infection will get resolved and she will get treated for sleep apnea, atrial fibrillation will be better controlled. However, if she remains in AFib, other alternative is to consider cardioversion. She will need at least three weeks of apixaban prior to cardioversion or other strategies to consider DEREK cardioversion. 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 At this point of time, the plan is to continue rate controlled strategy apparent plus anticoagulation. She will see her reprint sorter as an outpatient. Discussed the plan with our hospitalist team as well. At this point of time, cardiology service will sign off. Thanks for the cardiology consult. If needs further assistance please call us. TOTAL TIME SPENT TODAY: About 40 minutes. YOEL
--- NOTE | 2016-12-03 16:55 | NUR ---
Social Work: Readiness for Discharge D: Pt discussed in am rounds. Pt is still not rate controlled and may possibly require cardioversion. Cardiology continues to follow and consult. Pt remains I during admission. MOTORCYCLE DELIVERY DRIVER met with pt and spouse at bedside to confirm dcp. She agrees with plan for discharge home once medically stable; she is eager to leave. PT evaluation for pt completed today; pt ambulated 100+ feet with the use of FWW. No further discharge needs identified, pt discharged from PT services and cleared to ambulate I. No sw needs or barriers identified at this time. A: pt who is I at baseline P: Anticipate pt to discharge home via POV once medically stable; MOTORCYCLE DELIVERY DRIVER to continue to follow. MIRZA Bhatia
--- NOTE | 2016-12-03 16:55 | NUR ---
[facility] Signed
[2016-12-03] MEDS: Ipratropium 0.02% 0.5 mg/2.5 mL Inhalation Solution NEB SCH (20:30)
--- NOTE | 2016-12-03 21:18 | PCM.PNMED ---
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 Admitted for treatment of bronchitis secondary to RSV and atrial fibrillation with RVR. Hospital day 9 Overnight: No acute events overnight. Today: The patient is in better spirits today. She would like to ambulate outside of her room. She continues to have a cough and did have one episode of a small amount of hemoptysis that resolved. ROS negative except for mentioned above. Exam Vital Signs Vital Sign - Last Date Time Temp Pulse Resp B/P Pulse Ox O2 Delivery O2 Flow Rate FiO2 12/03/16 16:54 36.7 104 18 101/53 95 Nasal Cannula 1.00 Intake and Output 12/02/16 12/02/16 12/03/16 Cumulative From/Thru 15:00 23:00 07:00 11/25/16 14:18 - 12/03/16 06:48 Intake Total 1000 ml 475 ml 49029 ml Output Total 2001 ml 1250 ml 83189 ml Balance -1001 ml -775 ml -771 ml Intake Oral 1000 ml 475 ml 58718 ml IV Total 1232 ml Output Urine Total 2000 ml 1250 ml 06677 ml Stool Total 1 ml 1 ml Emesis 200 ml # Voids 22 # Bowel Movements 1 0 10 Exam General: alert and oriented, no acute distress, able to ambulate with minimal assistance HEENT: Head is atraumatic normocephalic. Eyes: Pupils are equally round and reactive to light and accommodation. Extraocular muscles are intact. Sclera are white anicteric. Subconjunctival mucosa is pink and dry. Ears and nose are unremarkable. Oropharynx: There is no mucosal lesions, there is no thrush, there is no pharyngitis. Neck: supple, there are no palpable lymph nodes, or masses or tenderness. Chest:fine crackles head at bases bilaterally. There are no no wheezes or rubs. Heart: Rate is regular, rhythm is irregular. There is no appreciable murmur, rub or gallop. Abdomen: Normal bowel sounds are present. Abdomen is obese, soft, nontender, no organomegaly, or masses were appreciated. Extremities: Are symmetrical and pulses palpable in all extremities. There is no edema, there is no cellulitis, no rash. Neurologic: There are no focal neurological deficits. Cranial nerves II through XII are intact. There are no sensory or motor deficits. Psychiatric: Patients mood is calm and shows no sign of agitation IVs and Medications Medications Reviewed: Medications were reviewed in detail Lab and Diagnostics Result Diagram: 12/03/1630912/03/16309 Microbiology RESP PCR RESP SYNCYTIAL VIRUS PCR Final 11/26/16-1043 Organism 1 RESPIRATORY SYNCYTIAL VIRUS RESPIRATORY SYNCYTIAL PCR DETECTED X-Rays, CTs and MRIs X-RAY CHEST, TWO VIEWS . IMPRESSION: Source of current symptoms is not seen, no pneumonia found. Prior CABG. Dictated by: Prince Clark M.D. on 11/29/2016 at 14:23 Cardiac Echo Impressions Echocardiogram Report Interpretation Summary The left ventricular cavity is small. There is mild-moderate concentric left ventricular hypertrophy. The ejection fraction is estimated to be 75-80%. There are no focal wall motion abnormalities. The right ventricle is normal in size and function. The right ventricular systolic pressure is estimated at 34 mmHg assuming a right atrial pressure of 3 mm Hg. The IVC is of normal diameter and collapses greater than 50% with a sniff. This suggests a low right atrial pressure of 3 mm Hg. There is no significant valvular heart disease. No other echocardiographic abnormalities seen. Compared to the prior echo report on 2010, there is no significant change. 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 Admitted for treatment of bronchitis secondary to RSV and atrial fibrillation with RVR. Hospital day 9 1.Infectious bronchitis/sinusitis positive for RSV, acute, present on admission , improving - Patient positive for RSV, patient placed on droplet cautions - Discontinue DuoNeb as patient seems to be having adverse reactions - Continue Ipratropium neb prn for SOB - Prednisone stopped - Azithromycin and Rocephin have been discontinued, procalcitonin and lactic acid trended down - Continue ocean spray, PRN for nasal dryness - Blood cultures negative to date - Influenza screen negative - Sputum culture shows normal sean - Chest x-ray shows no evidence of pneumonia at this time - Slow improvement continues 2. Atrial fibrillation with rapid ventricular response, acute, present on admission, improving - Albuterol nebulizers discontinued - Telemetry monitoring shows atrial fibrillation with rapid ventricular response. - Continue Metoprolol 50 mg TID and Cardizem 30 mg Q6 - Stopped Losartan - Patient encouraged to mobilize with assistance as tolerated by HR and blood pressure - PT ordered for gentle mobilization up and out of bed - Continued Eliquis 5 mg by mouth twice a day. 3.Acute exacerbation of diastolic HF, acute on chronic. present on admission, improving - BNP within normal limits 142 - Last Echocardiogram showed E/E' 22 with normal EF, sign of diastolic HF - Hold IV fluids - Continue to monitor 4.Hyperglycemia, present on admission, ongoing - A1c 5.9 - Continue insulin sliding scale 5.Elevated creatinine, resolved - Creatinine 1.10 11/29/16 - Patient responded well to IV fluids - We will continue to monitor 6.Hypertension, chronic, improving - Stop losartan 50 mg daily - Continue metoprolol 50 mg TID 7.Hyperlipidemia,chronic, presumed stable - Continue Crestor 10 mg daily at bedtime 8. Aortic arch repair in 1999, chronic, presumed stable -No evidence of new disease on CTA 9. Hypothyroidism, chronic -TSH normal 10. Diverticulitis, chronic, presumed stable -continue to monitor 11. GERD/PUD, chronic, presumed stable -continue to monitor 12 Recurrent UTI, chronic, presumed stable - UA on admission negative -continue to monitor 13. Arthritis/back injury, chronic, presumed stable -continue to monitor -Heating pad for back, PRN -Recommend OMT as outpatient DVT prophylaxis: Eliquis was 5 mg, SCDs, ambulation Code full Disposition: Overall her HR has improved, likely she can be discharged home tomorrow. GI Prophylaxis: H2 ashely VTE Prophylaxis: Sub-Q Enoxaparin, Other (Eliquis started today) VTE Mechanical Devices: Intermittant Pneumatic CD Resuscitation Status: CPR: Attempt Resuscitation Attending Statement The patient was seen and examined together with Dr. Garcia on 12/03/2016 and I agree with the history, exam and plan as outlined in the note above. . Rachel Garcia DO Dec 03, 2016 17:18 Gucci Strong MD Dec 08, 2016 16:05
[2016-12-03] MEDS ORDERED: Ipratropium 0.02% 0.5 mg/2.5 mL Inhalation Solution NEB PRN (21:40)
[2016-12-04] MEDS: Codeine-guaiFENesin 10 mL Syrup PO PRN (00:04)
[2016-12-04 04:13] VITALS: BP 101/48; PULSE 85; RESP 20; O2SAT 96
--- NOTE | 2016-12-04 05:16 | NUR ---
Respiratory / Telemetry / Ambulation Pt on 1L NC at HS with SPO2 of 96%; NC removed and pt on RA throughout rest of shift with SpO2 93-95%. Pt denies dyspnea except at the end of prolonged exertion. Tele afib 90s-100s. Pt ambulated around [facility] floor x1 with this RN, tolerated well, no c/o dyspnea or dizziness.
[2016-12-04 07:45] VITALS: BP 104/65; PULSE 80; RESP 20; O2SAT 96
[2016-12-04] MEDS: Insulin LISPRO 300 Unit/3 mL Inj SUBQ SCH ×2 (07:50→12:00)
[2016-12-04] MEDS: MeTOProlol XL 50 mg ER24 Tablet PO SCH (07:50)
[2016-12-04 10:13] VITALS: PULSE 83; RESP 18; O2SAT 94
[2016-12-04] MEDS ORDERED: DILT30TA30 PO (10:47)
[2016-12-04] MEDS ORDERED: APIX5TAB PO (10:47)
[2016-12-04] MEDS ORDERED: LOSA50TA37 PO (10:47)
[2016-12-04] MEDS ORDERED: METO-272 PO (10:47)
--- NOTE | 2016-12-04 10:58 | PCM.DIMED ---
Discharge Instructions Date of Service Dec 04, 2016 Dates of Hospitalization Nov 25, 2016 at 18:56 Discharge Diagnosis Discharge Diagnosis 1.Infectious bronchitis/sinusitis positive for RSV, acute, present on admission , improving 2. Atrial fibrillation with rapid ventricular response, acute, present on admission, improving 3.Acute exacerbation of diastolic HF, acute on chronic. present on admission, improving 4.Hyperglycemia, present on admission, ongoing 5.Elevated creatinine, resolved 6.Hypertension, chronic, improving 7.Hyperlipidemia,chronic, presumed stable 8. Aortic arch repair in 1999, chronic, presumed stable 9. Hypothyroidism, chronic 10. Diverticulitis, chronic, presumed stable 11. GERD/PUD, chronic, presumed stable 12 Recurrent UTI, chronic, presumed stable 13. Arthritis/back injury, chronic, presumed stable Diet Heart Healthy Activity Limited until seen by PCP Call your provider Fever or Chills, Shortness of breath, Bleeding, Chest pain, Vomitting, Excessive diarrhea, Weakness (unilateral) Patient Instructions 1.Infectious bronchitis/sinusitis positive for RSV, acute, present on admission , improving - Patient positive for RSV, Viral infection and symptoms may last 1-2 weeks, if you continue to have cough wear a mask in public to prevent spread, avoid contact with small children until symptoms resolve - Keep well hydrated - Follow up with PCP in one week, [facility] [place] 2. Atrial fibrillation with rapid ventricular response, acute, present on admission, improving - Continue Metoprolol 50 mg TID and Cardizem 30 mg Q6 - Stopped Losartan as this may be contributing to you cough and low blood pressure, re-evaluate with your PCP - Continued Eliquis 5 mg by mouth twice a day. - Follow up with your Power Builder Developer Dr. Sona Mercedes at your next earliest appointment 3.Acute exacerbation of diastolic HF, acute on chronic. present on admission, improving - Last Echocardiogram showed E/E' 22 with normal EF, sign of diastolic HF - Follow up with your care transitions nurse within two weeks 4.Hyperglycemia, present on admission, ongoing - A1c 5.9 5.Elevated creatinine, resolved -Follow up with PCP in one week 6.Hypertension, chronic, improving - Stop losartan 50 mg daily - Continue metoprolol 50 mg TID 7.Hyperlipidemia,chronic, presumed stable - Continue Crestor 10 mg daily at bedtime 8. Aortic arch repair in 1999, chronic, presumed stable -No evidence of new disease on CTA 9. Hypothyroidism, chronic -TSH normal 10. Diverticulitis, chronic, presumed stable -continue to monitor as outpatient 11. GERD/PUD, chronic, presumed stable -continue to monitor as outpatient 12 Recurrent UTI, chronic, presumed stable - UA on admission negative - continue to monitor as outpatient 13. Arthritis/back injury, chronic, presumed stable -continue to monitor as outpatient -Recommend OMT as outpatient please call [facility] Residency clinic at earliest connivence Follow-up plan as above Follow-up with PCP in: 1 week AVNI THOMSON DO Dec 04, 2016 10:58 AVNI THOMSON DO Dec 04, 2016 10:58
[2016-12-04 11:24] VITALS: BP 96/60; PULSE 86; RESP 18; O2SAT 94
--- NOTE | 2016-12-04 11:49 | NUR ---
Social Work Note: Discharge Data& Assessment: Per pt is medically ready to discharge. Bere Nair is a 66 year old female admitted on for hypoxemia and bronchitis. Per pt is medically improved and ready to discharge home via POV. SW met with pt at bedside to confirm discharge plan and assess for any unmet needs. Pt explained her will be transporting her home at 1:30p.m. today. Pt denies any other needs. No other discharge needs identified. Plan: Per pt is medically improved and ready to discharge home via POV at 1:30p.m..Pt denies any other needs. No other discharge needs identified. MIRZA Santana
--- NOTE | 2016-12-04 13:11 | NUR ---
Discharge The pt discharged from the unit at 1300 with all her belongings and her packet of discharge information. She verbalized understanding of all the information provided, included the info on her new scripts and follow up appointments. The pt left the unit via wheelchair with her , and is being transported home via private vehicle. The pt left the unit with vitals WNL and A&O x3.
--- NOTE | 2016-12-04 17:43 | PCM.DC.MED ---
Discharge Summary Date of Service Dec 04, 2016 Dates of Hospitalization Date of Hospital Admission Nov 25, 2016 at 18:56 Date of Discharge: Dec 04, 2016 Providers: Admitting Physician: Matt Almaraz MD Primary Care Physician: Other,Physician Attending Physician: Matt Almaraz MD Diagnosis at Time of Discharge Diagnosis at Time of Discharge 1.Infectious bronchitis/sinusitis positive for RSV, acute, present on admission , improving 2. Atrial fibrillation with rapid ventricular response, acute, present on admission, improving 3.Acute exacerbation of diastolic HF, acute on chronic. present on admission, improving 4.Hyperglycemia, present on admission, ongoing 5.Elevated creatinine, resolved 6.Hypertension, chronic, improving 7.Hyperlipidemia,chronic, presumed stable 8. Aortic arch repair in 1999, chronic, presumed stable 9. Hypothyroidism, chronic 10. Diverticulitis, chronic, presumed stable 11. GERD/PUD, chronic, presumed stable 12 Recurrent UTI, chronic, presumed stable 13. Arthritis/back injury, chronic, presumed stable Consultations Cardiology Procedures XRay, CTs & MRIs X-RAY CHEST, TWO VIEWS . IMPRESSION: Source of current symptoms is not seen, no pneumonia found. Prior CABG. Dictated by: Prince Clark M.D. on 11/29/2016 at 14:23 Cardiac Echo Impression Echocardiogram Report Interpretation Summary The left ventricular cavity is small. There is mild-moderate concentric left ventricular hypertrophy. The ejection fraction is estimated to be 75-80%. There are no focal wall motion abnormalities. The right ventricle is normal in size and function. The right ventricular systolic pressure is estimated at 34 mmHg assuming a right atrial pressure of 3 mm Hg. The IVC is of normal diameter and collapses greater than 50% with a sniff. This suggests a low right atrial pressure of 3 mm Hg. There is no significant valvular heart disease. No other echocardiographic abnormalities seen. Compared to the prior echo report on 2010, there is no significant change. Brief History Copied from ED H&P "A 66 year old female with a history of pneumonia, aortic aneurism, and hypertension is brought to the ED via EMS, accompanied by her , due to shortness of breath. The pt has been experiencing a cough recently, which has worsened significantly. It is now productive with green and yellow sputum. This is accompanied by wheezing, nausea, vomiting, rhinorrhea, and nasal congestion. The pt saw her PCP four days ago, at which point her lungs were clear. She was diagnosed with sinusitis and prescribed Augmentin. She last took a dose this morning. The pt denies chest pain, lower extremity edema, abdominal pain, and bloody sputum. as well as any history of asthma or breathing treatments. 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 Admitted for treatment of bronchitis secondary to RSV and atrial fibrillation with RVR. 1.Infectious bronchitis/sinusitis positive for RSV, acute, present on admission , improving - Continued Ipratropium neb prn for SOB - Azithromycin and Rocephin have been discontinued, procalcitonin and lactic acid trended down - Continued ocean spray, PRN for nasal dryness - Blood cultures negative to date - Influenza screen was negative - Sputum culture showed normal sean - Chest x-ray showed no evidence of pneumonia at this time 2. Atrial fibrillation with rapid ventricular response, acute, present on admission, improving - Albuterol nebulizers discontinued - Telemetry monitoring shows atrial fibrillation with rapid ventricular response. - Continued Metoprolol 50 mg TID and Cardizem 30 mg Q6 - Stopped Losartan - Patient encouraged to mobilize with assistance as tolerated by HR and blood pressure - Continued Eliquis 5 mg by mouth twice a day. 3.Acute exacerbation of diastolic HF, acute on chronic. present on admission, improving - BNP within normal limits 142 - Last Echocardiogram showed E/E' 22 with normal EF, sign of diastolic HF 4.Hyperglycemia, present on admission, ongoing - A1c 5.9 - Continued insulin sliding scale 5.Elevated creatinine, resolved - Creatinine 1.10 11/29/16 - Patient responded well to IV fluids - We will continue to monitor 6.Hypertension, chronic, improving - Stopped losartan 50 mg daily - Continue metoprolol 50 mg TID 7.Hyperlipidemia,chronic, presumed stable - Continued Crestor 10 mg daily at bedtime 8. Aortic arch repair in 1999, chronic, presumed stable -No evidence of new disease on CTA 9. Hypothyroidism, chronic -TSH normal 10. Diverticulitis, chronic, presumed stable -continued to monitor 11. GERD/PUD, chronic, presumed stable -continued to monitor 12 Recurrent UTI, chronic, presumed stable - UA on admission negative -continued to monitor 13. Arthritis/back injury, chronic, presumed stable -Heating pad for back, PRN -Recommend OMT as outpatient Exam Vital Signs (Last) Date Time Temp Pulse Resp B/P Pulse Ox O2 Delivery O2 Flow Rate FiO2 12/04/16 11:24 36.6 86 18 96/60 94 Room Air 12/03/16 16:54 1.00 Exam General: alert and oriented, no acute distress, able to ambulate with minimal assistance HEENT: Head is atraumatic normocephalic. Eyes: Pupils are equally round and reactive to light and accommodation. Extraocular muscles are intact. Sclera are white anicteric. Subconjunctival mucosa is pink and dry. Ears and nose are unremarkable. Oropharynx: There is no mucosal lesions, there is no thrush, there is no pharyngitis. Neck: supple, there are no palpable lymph nodes, or masses or tenderness. Chest:fine crackles head at bases bilaterally. There are no no wheezes or rubs. Heart: Rate is regular, rhythm is irregular. There is no appreciable murmur, rub or gallop. Abdomen: Normal bowel sounds are present. Abdomen is obese, soft, nontender, no organomegaly, or masses were appreciated. Extremities: Are symmetrical and pulses palpable in all extremities. There is no edema, there is no cellulitis, no rash. Neurologic: There are no focal neurological deficits. Cranial nerves II through XII are intact. There are no sensory or motor deficits. Psychiatric: Patients mood is calm and shows no sign of agitation Test 11/25/16 21:00 11/26/16 05:19 11/29/16 09:00 11/30/16 03:20 Urine Color Straw (YELLOW) Urine Appearance Clear (CLEAR,HAZY) Urine pH 5.5 (5.0-8.0) Urine Specific [place] 1.010 (1.003-1.035) Urine Protein Negativemg/dL (NEG,TRACE) Urine Glucose (UA) Negativemg/dL (NEGATIVE) Urine Ketones Negativemg/dL (NEGATIVE) Urine Occult Blood Trace (NEGATIVE) Urine Nitrite Negative (NEGATIVE) Urine Bilirubin Negative (NEGATIVE) Urine Urobilinogen Normalmg/dL (NORMAL) Urine Leukocyte Esterase Negative (NEGATIVE) Urine RBC 0-2/hpf (0-2) Urine WBC 0-5/hpf (0-5) Urine Epithelial Cells Few/hpf (NONE-MOD) Urine Crystals None seen (NONE SEEN) Urine Bacteria None/hpf (NONE-FEW) Urine Hyaline Casts Occasional/lpf (NONE) Urine Granular Casts None seen (NONE SEEN) Urine Waxy Casts None seen (NONE SEEN) Urine Red Blood Cell Casts None seen (NONE SEEN) Urine White Blood Cell Casts None seen (NONE SEEN) Urine Mucus Present (None Seen) Urine Trichomonas None seen (NONE SEEN) Urine Yeast None (NONE SEEN) Urine Culture Reflexed Not indicated Hemoglobin A1c 5.9% (4.8-5.6) Troponin T 0.010ug/L (0.0-0.011) Pro-B-Type Natriuretic Peptide 142.0pg/mL (0-301) Band Neutrophils % 2% (1-5) Total Bilirubin 0.2mg/dL (0.0-1.2) Aspartate Amino Transf (AST/SGOT) 20U/L (0-50) Alanine Aminotransferase (ALT/SGPT) 37U/L (0-32) Alkaline Phosphatase 70U/L (25-165) Total Protein 6.5g/dL (6.4-8.4) Albumin 3.9g/dL (3.4-5.0) Test 12/01/16 04:23 12/02/16 04:43 12/03/16 03:10 Prothrombin Time 10.1sec (8.1-12.5) Prothromb Time International Ratio 0.95ratio Lactic Acid Level 1.0mmol/L (0.4-2.0) Magnesium Level 2.4mg/dL (1.6-2.6) Thyroid Stimulating Hormone (TSH) 1.820uIU/mL (0.450-4.500) White Blood Count 8.6th/mm3 (3.8-10.1) Red Blood Count 4.59mil/mm3 (3.90-5.20) Hemoglobin 13.5g/dL (12.0-15.6) Hematocrit 40.5% (35.0-46.0) Mean Corpuscular Volume 88.2fL (81-100) Mean Corpuscular Hemoglobin 29.4pg (27.0-35.0) Mean Corpuscular Hemoglobin Concent 33.3% (32.0-37.0) Red Cell Distribution Width 13.1% (12.3-15.4) Platelet Count 323bil/L (150-400) Neutrophils (%) (Auto) 71.2% (40-74) Lymphocytes (%) (Auto) 11.3% (14-46) Monocytes (%) (Auto) 12.4% (4-12) Eosinophils (%) (Auto) 2.6% (0-5) Basophils (%) (Auto) 0.4% (0-3) Sodium Level 140mEq/L (134-144) Potassium Level 4.8mEq/L (3.5-5.2) Chloride Level 102mEq/L (97-108) Carbon Dioxide Level 27mmol/L (18-29) Blood Urea Nitrogen 19mg/dL (8-27) Creatinine 0.62mg/dL (0.57-1.00) Estimat Glomerular Filtration Rate 137mL/min (>59) Glucose Level 110mg/dL (60-99) Calcium Level 8.4mg/dL (8.5-10.1) Procalcitonin < 0.05ng/mL (See Comment) Microbiology Results RESP PCR RESP SYNCYTIAL VIRUS PCR Final 11/26/16-1043 Organism 1 RESPIRATORY SYNCYTIAL VIRUS RESPIRATORY SYNCYTIAL PCR DETECTED Discharge Medications Discharge Medications Apixaban (Eliquis) 5 Mg Tablet 5 MG PO Q12 Prescribed by: AVNI WARD DO Diltiazem (Cardizem) 30 Mg Tablet 30 MG PO Q8 Prescribed by: AVNI WARD DO Losartan Potassium (Losartan Potassium) 50 Mg Tablet 50 MG PO DAILY Prescribed by: AVNI WARD DO Metoprolol Succinate ER (Metoprolol Succinate ER) 50 Mg Tab.er.24h 50 MG PO TID Prescribed by: AVNI WARD DO Rosuvastatin Calcium (Rosuvastatin Calcium) 10 Mg Tablet 10 MG PO HS (Reported) Followup Plan Disposition: home Follow-up plan as above Discharge Diet: Heart Healthy Discharge Activity: Limited until seen by PCP Patient Instructions 1.Infectious bronchitis/sinusitis positive for RSV, acute, present on admission , improving - Patient positive for RSV, Viral infection and symptoms may last 1-2 weeks, if you continue to have cough wear a mask in public to prevent spread, avoid contact with small children until symptoms resolve - Keep well hydrated - Follow up with PCP in one week, [facility] Pamela Bladek 2. Atrial fibrillation with rapid ventricular response, acute, present on admission, improving - Continue Metoprolol 50 mg TID and Cardizem 30 mg Q6 - Stopped Losartan as this may be contributing to you cough and low blood pressure, re-evaluate with your PCP - Continued Eliquis 5 mg by mouth twice a day. - Follow up with your Women'S Studies Lecturer Dr. Sona Resendiz at your next earliest appointment 3.Acute exacerbation of diastolic HF, acute on chronic. present on admission, improving - Last Echocardiogram showed E/E' 22 with normal EF, sign of diastolic HF - Follow up with your lead software engineer within two weeks 4.Hyperglycemia, present on admission, ongoing - A1c 5.9 5.Elevated creatinine, resolved -Follow up with PCP in one week 6.Hypertension, chronic, improving - Stop losartan 50 mg daily - Continue metoprolol 50 mg TID 7.Hyperlipidemia,chronic, presumed stable - Continue Crestor 10 mg daily at bedtime 8. Aortic arch repair in 1999, chronic, presumed stable -No evidence of new disease on CTA 9. Hypothyroidism, chronic -TSH normal 10. Diverticulitis, chronic, presumed stable -continue to monitor as outpatient 11. GERD/PUD, chronic, presumed stable -continue to monitor as outpatient 12 Recurrent UTI, chronic, presumed stable - UA on admission negative - continue to monitor as outpatient 13. Arthritis/back injury, chronic, presumed stable -continue to monitor as outpatient -Recommend OMT as outpatient please call [facility] Residency clinic at earliest connivence Follow-up Provider: [facility] Residency Clinic Follow-up with PCP in: 1 week Follow-up in: 2 weeks Time spent 40 minutes coordinating discharge Attending Statement patient seen and examined with Dr Ward .I agree with the history,exam, impression and plan as outlined above copies to: OTHER,PHYSICIAN; [facility] Residency Clinic; dr Sona resendiz,lead software engineer at AVNI WARD DO Dec 04, 2016 17:43 Yousuf Jackson MD Dec 04, 2016 18:39
== END 2016-12-04 13:10 | disposition home or self-care (01) | DRG 202 ==
LOC: SED 14:15 → OSC 18:56 → PCC 11-29 15:55
PROVIDERS: ADMIT Urology; ATTEND Urology
DX: J20.5 Acute bronchitis due to respiratory syncytial virus (principal); I50.33 Acute on chronic diastolic (congestive) heart failure; I48.1 Persistent atrial fibrillation; I48.0 Paroxysmal atrial fibrillation; I10 Essential (primary) hypertension; E03.9 Hypothyroidism, unspecified; F32.9 Major depressive disorder, single episode, unspecified; R09.02 Hypoxemia; R73.9 Hyperglycemia, unspecified; E78.5 Hyperlipidemia, unspecified; R00.0 Tachycardia, unspecified; T48.6X5A Adverse effect of antiasthmatics, initial encounter; Y92.230 Patient room in hospital as the place of occurrence of the external cause; Z87.440 Personal history of urinary (tract) infections; Z79.01 Long term (current) use of anticoagulants; G47.33 Obstructive sleep apnea (adult) (pediatric)